=== PATIENT | male | born 1975 | race Caucasian/White ===

== ENCOUNTER 2025-02-22 01:41 | Observation (INO) | payer OTHER, SELFPAY ==
[2025-02-22] VITALS (8 sets, daily range): BP systolic 100–150; BP diastolic 59–95; PULSE 67–117; RESP 12–18; TEMP 36.2–36.6; O2SAT 92–98; BMI 47.5
--- NOTE | ~2025-02-22 | XR_ITS ---
EXAMINATION: XR retrograde pyelo w/stent RT DATE: 02/22/2025 14:51 INDICATION: Right internal ureteral stent placement TECHNIQUE: Fluoroscopic images from a right internal ureteral stent placement are submitted for review. 15 seconds of fluoroscopy time. FINDINGS: There is a right double-J internal ureteral stent projecting in expected position, with proximal [place] loop at the level of the renal pelvis and distal loop in the pelvis within the bladder lumen. IMPRESSION: 1. Right internal ureteral stent placement. Please refer to real-time procedural findings for details. Reviewed, dictated and finalized at location B. IMPRESSION: 1. Right internal ureteral stent placement. Please refer to real-time procedu ral findings for details.
--- NOTE | ~2025-02-22 | CT_ITS ---
CT abdomen pelvis w con Clinical History: rlq/flank pain, poss stone . Comparison: None Technique: Axial images lung bases to symphysis pubis 100 mL Omnipaque 350 Coronal, sagittal reformats CT images acquired with automatic exposure control for dose reduction DLP: 1618 mGy-cm Findings: Lung bases: Clear. Visualized heart and pericardium: Unremarkable. Liver: Steatosis. Enlarged Gallbladder: Unremarkable. Spleen: Unremarkable. Pancreas: Unremarkable. Adrenal glands: Unremarkable. Kidneys: Right kidney- minimal hydronephrosis. 17 mm stone major calyx. Several small stones. Small cortical cyst. Collecting system urothelial enhancement. Left kidney- No hydronephrosis. No renal stones. Distal esophagus/stomach: Small hiatal hernia. Small bowel loops: Normal caliber and wall thickness. Colon: Normal caliber and wall thickness. Normal RLQ appendix. Nodes: No enlarged nodes. Peritoneum: No ascites. No free air. Urinary bladder: Unremarkable. Prostate: Unremarkable. Bones: No acute bony abnormality. Soft tissues: Unremarkable. Aorta: No aneurysm or dissection. IVC: Unremarkable. Main portal vein/SMV/splenic vein: Patent. IMPRESSION: 1. Mild hydronephrosis right kidney with several stones, largest 17 mm within central collecting system. Probable associated pyelitis. 2. No other acute abnormality noted. Reviewed, dictated and finalized at location R.
[2025-02-22 03:44] LABS: Hematocrit 47.9 % (42.0-52.0); Hemoglobin 15.9 g/dL (14.0-18.0); Immature Granulocyte Percent A 0.4 % (0-0.5); Lymphocytes Absolute Auto 1.13 K/mm3 (0.9-3.2); Mean Corpuscular HGB Conc 33.2 g/dl (32-36); Mean Corpuscular Hemoglobin 28.6 pg (26-34); Mean Corpuscular Volume 86.2 fl (80-100); Nucleated Red Blood Cells Absolute Auto 0.000 K/mm3 (0.0-0.012); Nucleated Red Blood Cells Perc 0.0 % (0.0-0.2); Platelet Count Result 258 k/mm3 (150-375); Red Blood Count 5.56 M/mm3 (4.6-6.20); White Blood Count 10.7 K/mm3 (4.5-10.0)
--- NOTE | 2025-02-22 03:51 | ED.ABDPAIN ---
HPI - Abdominal Pain General Chief Complaint: Abdominal Pain Stated Complaint: kidney stone- n/v, painful Time Seen by Provider: 02/22/25 03:47 Source: patient Mode of arrival: ambulatory Limitations: no limitations History of Present Illness HPI narrative: This is a 49-year-old male with history of kidney stones who presents to the ED for right flank pain and right lower quadrant abdominal pain. Patient states he was woken up in the middle of the night 24 hours ago with right flank pain that felt similar to his prior kidney stone. He has had frequent urination, denies fevers, chills. He has had nausea and episode of emesis. His last kidney stone was several years ago. He tried Tylenol with minimal relief. Related Data Allergies Allergy/AdvReac Type Severity Reaction Status Date / Time No Known Allergies Allergy Mild Verified 05/12/10 10:06 Review of Systems Review of Systems: Gen.: Denies fevers or chills Eyes: Denies eye pain or visual change ENT: Denies congestion Respiratory: Denies shortness of breath or cough CV: Denies chest pain or palpitations GI: As per HPI as per HPI Musculoskeletal: Denies back pain or muscle pain Neuro: Denies numbness, tingling, weakness or focal weakness Skin: Denies rash Except as documented, all other systems reviewed and negative [facility] Social History Social History Alcohol intake: never Exam Narrative: APPEARANCE: No acute distress, nontoxic, resting in bed EYES: EOMI HEENT: Normocephalic, atraumatic, OMM RESPIRATORY: No respiratory distress Clear to auscultation bilaterally with no rhonchi wheezing or rales. CARDIOVASCULAR: Regular rate and rhythm without murmurs rubs or gallops. ABDOMINAL: Soft, nontender, nondistended, no rebound or guarding MUSCULOSKELETAl: Moves all extremities. No clubbing, cyanosis or edema. NEURO: Awake and alert. Following commands, speech normal, no focal deficits SKIN:: Warm, dry. No rashes lesions or abrasions PSYCHIATRIC: Normal affect/mood, Course Vital Signs Vital signs: Vital Signs Temperature 97.9 F 02/22/25 01:41 Pulse Rate 117 H 02/22/25 01:41 Respiratory Rate 18 02/22/25 01:41 Blood Pressure 150/95 H 02/22/25 01:41 Pulse Oximetry 97 02/22/25 01:41 Oxygen Delivery Room Air 02/22/25 01:41 Temperature 97.9 F 02/22/25 01:41 Pulse Rate 83 02/22/25 07:38 Respiratory Rate 14 02/22/25 07:38 Blood Pressure 116/71 02/22/25 07:38 Pulse Oximetry 98 02/22/25 07:38 Oxygen Delivery Room Air 02/22/25 01:41 MDM - Abdominal Pain MDM Narrative Medical decision making narrative: 49-year-old male presenting for right flank pain. On initial evaluation, patient was in no acute distress, afebrile, hemodynamically stable. Heart and lungs clear. Abdomen soft and nontender. He had a mild leukocytosis at 10.7. CMP without significant abnormalities. He UA did show 2+ blood with RBCs. CT abdomen/pelvis did reveal A1 azar 7 cm calculus in the right renal pelvis with mild right hydronephrosis. Given the obstructive ureterolithiasis, I did consult Dr. Gay, urology, who will see the patient as consult and suspects operative intervention later today, recommends admission to the hospitalist in the meantime. I discussed case with hospitalist who will admit the patient. Differential Diagnosis Differential diagnosis: Likely abdominal pain, acute appendicitis, calculus of kidney, constipation and gastroenteritis Medical Records Attestation: I reviewed the patient's medical records. Lab Data Attestation: I reviewed the patient's lab results. 02/22/25 03:32 02/22/25 04:37 Labs: Lab Results 02/22/25 02/22/25 Range/Units 03:32 04:37 WBC 10.7 H (4.5-10.0) K/mm3 RBC 5.56 (4.6-6.20) M/mm3 Hgb 15.9 (14.0-18.0) g/dL Hct 47.9 (42.0-52.0) % MCV 86.2 (80-100) fl MCH 28.6 (26-34) pg MCHC 33.2 (32-36) g/dl RDW 13.2 (11.5-14.5) % Plt Count 258 (150-375) k/mm3 MPV 10.3 (7.4-10.4) fl Immature Gran % (Auto) 0.4 (0-0.5) % Neut % (Auto) 82.0 H (45.5-73.1) % Lymph % (Auto) 10.6 L (18.3-44.2) % [place] % (Auto) 6.4 (2.6-8.5) % Eos % (Auto) 0.4 (0-4.4) % Baso % (Auto) 0.2 (0.2-1.2) % Lymph # (Auto) 1.13 (0.9-3.2) K/mm3 [place] # (Auto) 0.7 H (0.1-0.6) K/mm3 Eos # (Auto) 0.0 (0-0.3) K/mm3 Baso # (Auto) 0.0 (0.0-0.1) K/mm3 Abs Immat Gran (auto) 0.04 H (0.00-0.031) K/mm3 Absolute Neuts (auto) 8.8 H (1.3-6.7) K/mm3 Absolute Nucleated RBC 0.000 (0.0-0.012) K/mm3 Nucleated RBC % 0.0 (0.0-0.2) % Sodium 139 (137-145) mmol/L Potassium 3.7 (3.4-5.0) mmol/L Chloride 107 (98-107) mmol/L Carbon Dioxide 23 (22-30) mmol/L Anion Gap 9 (4-12) mmol/L BUN 18 (9-20) mg/dL Creatinine 1.23 (0.7-1.3) mg/dL Estim Creat Clear Calc 102 ml/min Estimated GFR > 60 (59 - ) Glucose 122 H (65-110) mg/dL Calcium 9.0 (8.4-10.2) mg/dL Total Bilirubin 1.0 (0.2-1.3) mg/dL AST 35 (17-59) U/L ALT 47 (6-50) U/L Alkaline Phosphatase 64 (38-126) U/L Total Protein 7.2 (6.3-8.2) g/dL Albumin 4.0 (3.5-5.1) g/dL Urine Color Yellow (Yellow) Urine Appearance Cloudy H (Clear) Urine pH 5.0 (5.0-9.0) Ur Specific [place] 1.022 (1.001-1.035) Urine Protein Negative (Negative) mg/dL Urine Glucose (UA) Negative (Negative) mg/dL Urine Ketones Trace H (Negative) mg/dL Ur Blood (Man) 2+ H (Negative) Urine Nitrate Negative (Negative) Urine Bilirubin Negative (Negative) Urine Urobilinogen 0.2 (<2.0) mg/dL Add Ur Microanalysis Reviewed Leukocyte Esterase Rfl Negative (Negative) SHARAN/UL Urine RBC 6-10 H (0-2) /hpf Urine WBC 0-5 (0-3) /hpf Ur Squamous Epith Cells None seen (Few) /hpf Calcium Oxalate Crystal Present (None) /hpf Urine Bacteria None seen /hpf Urine Casts 0-2 Imaging Data Attestation: I personally reviewed and interpreted this imaging study as follows: My impression: CT abdomen/pelvis: Obstructing 1.7 cm stone in the right renal pelvis with mild hydroureter Radiologist's impression: CT abdomen/pelvis: Hepatic steatosis. There is a 1.7 cm calculus in the right renal pelvis causing mild right hydronephrosis. Diminished enhancement of the right kidney compared to the left, likely due to the obstruction. There are additional nonobstructive right intrarenal stones measuring up to 4 mm in the lower pole Discharge Plan Discharge Clinical Impression: Ureterolithiasis Patient Disposition: Still a Patient Condition: Stable
[2025-02-22 03:59] LABS: Add Urine Microscopic? YES; Appearance Urine Cloudy (Clear); Glucose Urine UA Negative (Negative); Leukocyte Esterase Ur Negative LEU/UL (Negative); Need Manual Microscopic Reviewed; Nitrate Urine Negative (Negative); Non Pathogenic Casts 0-2; Specific Grav Ur 1.022 (1.001-1.035)
[2025-02-22] MEDS: SODIUM CHLORIDE 0.9% IV 1,000 ML 999 ML IV CONT (04:07)
[2025-02-22] MEDS: ONDANSETRON INJ 4 MG/2 ML VIAL IV PUSH (04:08)
[2025-02-22] MEDS: KETOROLAC 30 MG/ML VIAL (*BKC) IV PUSH (04:08)
[2025-02-22 05:02] LABS: Alanine Aminotransferase 47 U/L (6-50); Albumin Level 4.0 g/dL (3.5-5.1); Alkaline Phosphatase 64 U/L (38-126); Anion Gap 9 mmol/L (4-12); Aspartate Amino Transferase 35 U/L (17-59); Bilirubin,Total 1.0 mg/dL (0.2-1.3); Blood Urea Nitrogen 18 mg/dL (9-20); Calcium 9.0 mg/dL (8.4-10.2); Carbon Dioxide 23 mmol/L (22-30); Chloride 107 mmol/L (98-107); Estimated CRCL calculation 102 ml/min; Estimated Glomerular Filt Rate > 60; Glucose 122 mg/dL (65-110); Potassium 3.7 mmol/L (3.4-5.0); Sodium 139 mmol/L (137-145); Total Protein 7.2 g/dL (6.3-8.2)
--- NOTE | 2025-02-22 07:12 | P.HP_ITS ---
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 The patient has no significant medical history. As per the patient, in June 2024, he had nephrolithiasis and was treated in the urgent care without any surgical intervention. His symptoms started about a day ago, but due to unbearable pain, nausea, and vomiting, he came to the ED. Abdomen/pelvis CT shows Mild hydronephrosis of the right kidney with several stones, the largest 17 mm within the central collecting system?probable associated pyelitis. Patient underwent cystoscopy with right ureteral stent placement . Patient will be discharged tonight or tomorrow with the Augmentin, Flomax, and oxycodone for pain, and can follow up with Urology as an outpatient. Review of Systems Review of Systems: Gen.: Denies fevers or chills Eyes: Denies eye pain or visual change ENT: Denies congestion Respiratory: Denies shortness of breath or cough CV: Denies chest pain or palpitations GI: As per HPI as per HPI Musculoskeletal: Denies back pain or muscle pain Neuro: Denies numbness, tingling, weakness or focal weakness Skin: Denies rash Except as documented, all other systems reviewed and negative [facility] Past Medical History Medical History (Updated 02/22/25 @ 13:47 by Ken Lomax MD) HERRERA on CPAP Morbid obesity Social History Social History Smoking status: Never smoker Alcohol intake: never Substance use type: does not use Lack of Transportation: No Lack of Food: Never True Current Housing: Decline to Answer Concerned About Future Housing: Decline to Answer Difficulty Paying Gas/Electric Bills: Decline to Answer Difficulty Paying for Meds: Decline to Answer Currently Unemployed: Decline to Answer Education: Decline to Answer Difficulty w/ Childcare or Family Care: Decline to Answer Spiritual care concerns: No Meds Home Medications and Allergies Home Medications ?Medication ?Instructions ?Recorded ?Confirmed ?Type No Home Medications 02/22/25 02/22/25 H istory Allergies Allergy/AdvReac Type Severity Reaction Status Date / Time No Known Allergies Allergy Mild Verified 02/22/25 09:06 Vital Signs Vital Signs - 24 hr 02/22/25 01:41 Temperature 97.9 F Pulse Rate 117 H Respiratory Rate 18 Blood Pressure 150/95 H Pulse Oximetry 97 Oxygen Delivery Room Air Exam Narrative: APPEARANCE: No acute distress, nontoxic, resting in bed EYES: EOMI HEENT: Normocephalic, atraumatic, OMM RESPIRATORY: No respiratory distress Clear to auscultation bilaterally with no rhonchi wheezing or rales. CARDIOVASCULAR: Regular rate and rhythm without murmurs rubs or gallops. ABDOMINAL: Soft, nontender, nondistended, no rebound or guarding MUSCULOSKELETAl: Moves all extremities. No clubbing, cyanosis or edema. NEURO: Awake and alert. Following commands, speech normal, no focal deficits SKIN:: Warm, dry. No rashes lesions or abrasions PSYCHIATRIC: Normal affect/mood, Const: General: comfortable Resp: Effort & Inspection: normal respiratory effort : Other: No CVA tenderness Skin: General skin exam: normal color H&P: Results Labs Labs: Short CBC 02/22/25 Range/Units 03:32 WBC 10.7 H (4.5-10.0) K/mm3 Hgb 15.9 (14.0-18.0) g/dL Hct 47.9 (42.0-52.0) % Plt Count 258 (150-375) k/mm3 BMP 02/22/25 04:37 Sodium 139 Potassium 3.7 Chloride 107 Carbon Dioxide 23 BUN 18 Creatinine 1.23 Glucose 122 H Calcium 9.0 Liver Function 02/22/25 Range/Units 04:37 Total Bilirubin 1.0 (0.2-1.3) mg/dL AST 35 (17-59) U/L ALT 47 (6-50) U/L Alkaline Phosphatase 64 (38-126) U/L Albumin 4.0 (3.5-5.1) g/dL Urine 02/22/25 Range/Units 03:32 Urine Color Yellow (Yellow) Urine Appearance Cloudy H (Clear) Urine pH 5.0 (5.0-9.0) Ur Specific [place] 1.022 (1.001-1.035) Urine Protein Negative (Negative) mg/dL Urine Glucose (UA) Negative (Negative) mg/dL Assessment and Plan Assessment and plan (1) Ureterolithiasis: Code(s): N20.1 - Calculus of ureter Status: Acute Assessment and Plan: -underwent cystoscopy, right ureteral stent placement -reviewed a CT abdomen/pelvis -Augmentin for 7 days -Flomax for 30 days -oxycodone 5 mg for pain -follow-up with urology as outpatient Plan Code status: Full code DVT prophylaxis: Early mobilization Hospitalist [facility] Advance Care Plan I have confirmed that the patient's Advanced Care Plan is present, code status is documented, or surrogate decision maker is listed in patient medical record.: Yes Medication Reconciliation I have utilized all available resources to obtain, update and review the patients current medications (includes all prescriptions, OTC, herbals, cannabis, and nutritional supplements).: Yes
--- OUTSIDE RECORDS SUMMARY | 2025-02-22 08:01 | XMS_ITS | Data Portability ---
Author Organization [place] [facility] Address [address] [place] [address] Assessment No assessment recorded. Plan of Treatment Reminders Order Date Submit Date Provider Last Modified By Organization Details Last Modified Time Details Appointments None record ed. Lab None record ed. Referral None record ed. Procedures None record ed. Surgeries None record ed. Imaging None record ed. Medication Orders None record ed. Patient TargetsNo targets recorded. Patient Instructions Encounter Date Encounter Id Patient Instructions Last Modified By Organization Details Last Modified Time 04/26/2023 [id number] Assessment and plan discussed as noted above. Patient verbalizes understanding and agrees with plan. Instructed to call office with further question or concerns. [email or web address] Not available 04/26/2023 09:31:31 Reason for Referral None Reported. Problems Name Problem SNOMED Code Status Onset Date Resolution Date Notes Provider Name and Address Organization Details Recorded Time Obesity 469664238 Active 2022 ANDREZ BOWSER null, [place] [facility] 08:44:41 Adopted 431530004 Active 2022 ANDREZ BOWSER null, [place] [facility] 3 08:45:13 Morbid obesity 146879401 Active 2022 Cosmo Pinzon MD [address] [facility],SHASHA WEAVER [[email or web address]], [place], [phone] , [place] [facility] 3 09:02:39 Snoring 81293660 Active 2022 ANDREZ BOWSER null, [place] [facility] 3 09:20:44 Edema 958361577 Active 2022 ANDREZ BOWSER null, [place] [facility] 3 09:20:57 Liver enzymes level above reference range 226316043 Active 2022 ANDREZ BOWSER null, [place] [facility] 09:21:17 Fatigue 79819615 Active 2022 ANDREZ BOWSER null, [place] [facility] 09:21:28 Prediabetes 327748045 Active 2022 ANDREZ BOWSER null, [place] [facility] 3 09:21:36 Liver enzymes level above reference range 926060788 Active 2022 Cosmo Pinzon MD [address] [facility],SHASHA WEAVER [[email or web address]], [place], [phone] [facility] [place] [facility] 09:23:37 Problem Notes None recorded. Medical Equipment None Reported. Allergies No known drug allergies Medications Name Sig Start Date Stop Date Status Note LastModified by Organization Details LastModified Time furosemide 40 mg tablet 04/26 completed Not Available Not Available Not Available hydrochloroth iazide 12.5 mg tablet TAKE 1 TABLET BY MOUTH ONCE DAILY active Not Available Not Available No t Available Vitals Date Recorded Body height Heart rate Respiratory rate Body temperature Body mass index (BMI) Body weight Oxygen saturation Oxygen saturation in Arterial blood by Pulse oximetry Systolic And Diastolic Provider Name and Address Organization Details Last Updated DateTime 3 180.34 cm 90 /min 18 /min 97.3 [degF] 47.8 kg/m2 111637. 69 g 96 % 96 % 118/70 mm[Hg] ANDREZ BOWSER [place] [facility] 3 08:41:17 Social History Question Answer Notes LastModified by Organizat ion Details LastModified Time Tobacco Smoking Status Never Smoker ANDREZ amaya, [place] [facility] 04/26/2023 08:45:52 Do You Have An Advance Directive? No [email or web address] Information n ot available 04/26/2023 Do You Wear A Helmet When Biking? No [email or web address] Information not available 04/26/2023 What Is Your Level Of Caffeine Consumption? Occasional [email or web address] Information not available 04/26/2023 In The 14 Days Before Symptom Onset, Have You Had Close Contact With A Laboratory-confirm ed COVID-19 While That Case Was Ill? No [email or web address] Information n ot available 04/26/2023 In The 14 Days Before Symptom Onset, Have You Had Close Contact With A Person Who Is Under Investigation For COVID-19 While That Person Was Ill? No [email or web address] Information not available 04/26/2023 Have You Been To An Area Known To Be High Risk For COVID-19? No [email or web address] Information not available 04/26/2023 Are You Deaf Or Do You Have Serious Difficulty Hearing? No [email or web address] Information not available 04/26/2023 What Type Of Diet Are You Following? REGULAR Information n ot available 04/26/2023 Have You Processed Blood Or Body Fluids From An Ebola Virus Disease Patient Without Appropriate PPE? No [email or web address] Information not available 04/26/2023 Do You Reside In Or Have You Traveled To An Area Where Ebola Virus Transmission Is Active? No [email or web address] Information not available 04/26/2023 What Is The Highest Grade Or Level Of School You Have Completed Or The Highest Degree You Have Received? [id number] [email or web address] Information not available 04/26/2023 Are There Any Guns Present In Your Home? No [email or web address] Information not available 04/26/2023 Do You Use Insect Repellent Routinely? Yes [email or web address] Information not available 04/26/2023 Do You Use An Electronic Nicotine Delivery System (Vaping)? No [email or web address] Information not available 04/26/2023 ENDS Screening Date 04/26/2023 [email or web address] Information not available 04/26/2023 Do You Have A Medical Power Of Finished Hardware Erector? No [email or web address] Information not available 04/26/2023 What Was The Date Of Your Most Recent Tobacco Screening? 04/26/2023 [email or web address] Information not available 04/26/2023 Do You Have Any Pets? No [email or web address] Information not available 04/26/2023 Do You Use Your Seat Belt Or Car Seat Routinely? Yes [email or web address] Information not available 04/26/2023 Are You Passively Exposed To Smoke? No [email or web address] Information no t available 04/26/2023 Do You Use Sunscreen Routinely? Yes [email or web address] Information not available 04/26/2023 Are You Currently In School? No Information not available 04/26/2023 Sex: Male Functional Status Question Answer Note LastModified by Organizat ion Details LastModified Time Do you use any illicit or recreational drugs? No Information not available 04/26/2023 Do you or have you ever used any other forms of tobacco or nicotine? No [email or web address] Information not available 04/26/2023 What is your level of alcohol consumption? None [email or web address] Information not available 04/26/2023 Are you currently employed? Yes Information not available 04/26/2023 Are you able to care for yourself independently? 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 None Information not available 04/26/2023 Mental Status Question Answer Note LastModified by Organization D etails LastModified Time Do you feel stressed (tense, restless, nervous, or anxious, or unable to sleep at night)? [id number] Information not available 04/26/2023 Family History Nothing Reported. Medical History No medical history recorded. Immunizations Vaccine Type Date Status Note Provider Nam e and Address Organization Details Recorded Time COVID-19, mRNA, LNP-S, PF, 100 mcg/0.5mL dose or 50 mcg/0.25mL dose 08/03/2020 completed ANDREZ BOWSER null, [place] [facility] 04/26/2023 08:42:41 COVID-19, mRNA, LNP-S, PF, 100 mcg/0.5mL dose or 50 mcg/0.25mL dose 08/31/2020 completed ANDREZ BOWSER null, [place] [facility] 04/26/2023 08:42:41 Tdap 06/20/2016 completed ANDREZ BOWSER null, [place] [facility] 04/26/2023 08:42:41 Influenza, split virus, quadrivalent, PF 04/26/2022 completed ANDREZ BOWSER null, [place] [facility] 04/26/2023 08:42:41 Past Encounters Encounter ID Performer Location Encounter Start Date Encounter Closed Date Diagnosis/Indication Diagnosis SNOMED-CT Code Diagnosis ICD10 Code Diagnosis IMO Codes Diagnosis Note [id number] KIANA JOHNSON MD [facility] [address] [facility] [address] [place] [address] 04/26/2023 08:28:30 04/26/2023 09:24:28 Adult health examination 076886012 Z00.00 Counseled on screening, prevention , imms, nutrition, exercise, health maintenanc e, weight. COunseled on vision, hearing and dental care. Morbid obesity 648902535 E66.01 low fat diet, exercise, , healthy eating guidelines d/w pt, avoid fried foods, more baked foods, more fruits and vegetables as part of daily dietpt declined biatrics/d ietician referal Liver enzy mes level above reference range 113822790 R74.01 per diagnosis from [facility] visit in 12/2022,pt denied ETOH usedecline d labs today ,plans on working towards weight loss Prediabetes 687108332 R7 3.03 declined labs today ,plans on working towards weight loss and eating healthy Health Concerns Section Related Observation LastModified by Organization Detai ls LastModified Time None Recorded Concern Status LastModified by Organization Details LastModified Time None Recorded Advance Directives Directive N: Payers Insurance Date Sequence Insurance Name Policy Number Policy Khan Covered Member ID Khan Member ID Guarantor Name 07/21/2023 1 [facility] - [employer] (PPO) Eric Rivero [id number] Eric Rivero 04/26/2023 2 [facility] Eric Rivero [id number] Eric Rivero 04/25/2023 1 *SELF PAY* To jeannine Rivero Notes Date Note Type Note Provider Name and Address Organization Details Recorded Time 04/26/2023 text/html ROS as noted in the HPI pt here to est carept denies 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 in 12/2022 for leg swelling ,was Rx waterpill for few days ,BP was high ,labs were donept denies snoring ( diagnosis listed in [facility] notes) Cosmo Pinzon MD [address] [facility],SHASHA WEAVER [[email or web address]], [place], [address], [place] [facility] 04/26/2023 10:37:15
--- OUTSIDE RECORDS SUMMARY | 2025-02-22 08:01 | XMS_ITS | Clinical Summary ---
Author Organization [employer] [address] [place] [address] [place] [address] [place] [address] Care Team Providers Care Level Vial Inspector And Tester Name Role Phone Unavailable Primary Care Provider Unavailabl e Encounters Date Type Department Care Team Description 01/28/2025 External Device Data ST[facility] ABSTRACTION Provider, Abstract 01/28/2025 External Device Data [facility] ABSTRACTION Provider, Abstract 01/28/2025 External Device Data [facility] ABSTRACTION Provider, Abstract 01/22/2025 12:05 PM CDT - 01/22/2025 11:59 PM CDT Hospital Encounter 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 Gender Identity Not on file Sexual Orientation Not on file Plan of Treatment Health Maintenance Due Date Last Done Comments Pre-Diabetes and Diabetes Screening 1976 HEPATITIS B VACCINES (1 of 3 - 19+ 3-dose series) 07/03/1995 COLORECTAL SCREENING 2021 Colorectal Cancer Screening 2021 FIT-DNA Q 3 years 2021 FIT/FOBT Q 1 year 2021 Flex Sig/CT Colonography Q 5 years 2021 INFLUENZA VACCINE (#1) 2024 04/26/2022 COVID-19 Vaccine ( - season) 12/30/202406/2020, 08/03/2020 DTAP/TDAP/TD VACCINES (2 - Td or Tdap) 06/20/2026 Procedures Procedure Name Priority Date/Time Associated Diagnosis Comments XR CHEST PA AND LATERAL 2 VW Routine 01/22/2025 12:26 PM CDT Shortness of breath from Last 3 Months Results * XR CHEST PA AND LATERAL 2 VW (01/22/2025 12:26 PM CDT) Anatomical Region Laterality Modality Chest Computed Radiogr aphy 01/22/2025 12:2 6 PM CDT Impressions 01/22/2025 12:33 PM CDT IMPRESSION: No acute cardiopulmonary disease. Narrative 01/22/2025 12:33 PM CDT EXAM: XR CHEST PA AND LATERAL 2 VW STUDY DATE: 01/22/2025 12:26 PM CLINICAL INDICATION: Shortness of breath COMPARISON: None PROCEDURE: Frontal and lateral radiographs of the chest are obtained. FINDINGS: No focal consolidation. No pleural effusions or pneumothorax. The cardiac silhouette is within normal limits. No acute osseous or soft tissue abnormalities. Procedure Note Rasheeda Sanches MD - 01/22/2025 EXAM: XR CHEST PA AND LATERAL 2 VW STUDY DATE: 01/22/2025 12:26 PM CLINICAL INDICATION: Shortness of breath COMPARISON: None PROCEDURE: Frontal and lateral radiographs of the chest are obtained. FINDINGS: No focal consolidation. No pleural effusions or pneumothorax. The cardiac silhouette is within normal limits. No acute osseous or soft tissue abnormalities. IMPRESSION: No acute cardiopulmonary disease. Emerald Malin NP DIAGNOSTIC IMAGING ORDERABLES Fi nal Result from Last 3 Months Insurance [employer] [id number] POS II * Guarantor: [employer]-[facility] MED [facility] (OM) Account Type Relation to Patient Date of Phone Billing Address Corporate Other [id number] [address] [address]
--- OUTSIDE RECORDS SUMMARY | 2025-02-22 08:01 | XMS_ITS | Data Portability ---
Author Organization [facility] ([facility] Address [address] [place] [phone] Assessment No assessment recorded. Plan of Treatment Reminders Order Date Submit Date Provider Last Modified By Organization Details Last Modified Time Details Appointments None record ed. Lab None record ed. Referral None record ed. Procedures None record ed. Surgeries None record ed. Imaging None record ed. Medication Orders None record ed. Patient TargetsNo targets recorded. Patient InstructionsNo instructions recorded. Reason for Referral None Reported. Procedures Surgical History Date Name Laterality Status Provider Name and Address Organization Details Recorded Time 01/05/2024 Sleep Study completed Wojciech Moreira MD, F.C.C.P. [address] [place] [address], [place], [address], [facility] 01/11/2024 08:58:56 Imaging Results None recorded. Procedure Notes None recorded. Medical Equipment None Reported. Medications Name Sig Start Date Stop Date Status Note LastModified by Organization Details LastModified Time hydrochlorothiaz mahogany 12.5 mg tablet TAKE 1 TABLET BY MOUTH ONCE DAILY active Not Available Not Available No t Available Vitals Date Recorded Body height Body mass index (BMI) Body weight Provider Name and Address Organization Details Last Updated DateTime 01/05/2024 182.88 cm 47.9 kg/m2 127033.11 g Armand Binning-Hrit z [facility] 01/09/2024 08:52:28 Social History None recorded. Functional Status None recorded. Mental Status None recorded. Family History Nothing Reported. Medical History No medical history recorded. Past Encounters Encounter ID Performer Location Encounter Start Date Encounter Closed Date Diagnosis/Indication Diagnosis SNOMED-CT Code Diagnosis ICD10 Code Diagnosis IMO Codes Diagnosis Note [id number] [facility], [facility] [phone] [facility] [address] [place] [address] 01/05/2024 20:43:56 01/09/2024 09:21:41 Obstructive sleep apnea of adult 1860718955 103 G47.33 Health Concerns Section Related Observation LastModified by Organization Detai ls LastModified Time None Recorded Concern Status LastModified by Organization Details LastModified Time None Recorded Advance Directives Directive None Recorded Payers Insurance Date Sequence Insurance Name Policy Number Policy Khan Covered Member ID Khan Member ID Guarantor Name 10/13/2024 PAYMENT PLAN Erickimmy Rivero 02/13/2024 [facility] [id number] Eric Rivero Notes Date Note Type Note Provider Name and Address Organization Details Recorded Time 01/05/2024 text/html HST SetupReporte d by PatientEquipment InstructionsFor hst set up, patient reportshst device number 39,demonstrated to patient how to set up home sleep test device. the patient was able to return demonstration with out difficulty., andthe patient is returning the device the following morning.. Wojciech Moreira MD, F.C.C.P. [address] [facility] [address], [place], [address], [facility] 01/11/2024 08:59:00
--- OUTSIDE RECORDS SUMMARY | 2025-02-22 08:02 | XMS_ITS | Encounter Summary ---
Author Organization [facility] Address [address] [place] [address] Care Team Providers Care Reference Librarian Name Role Phone Holly Gordon MD Primary Care Provider Encounter Details Date Type Department Care Team (Late Contact Info) Description 02/05/2025 Results Follow-Up [address] [phone] Emerald Malin, DECORATING KILN OPERATOR-[employer] SALES REPRESENTATIVE [address] [place] [id number] Social History Tobacco Use Types Packs/Day Years Used Date Smoking Tobacco: Never Alcohol Use Standard Drinks/Week Comments No 0 (1 standard drink = 0.6 oz pur e alcohol) PHQ-2 Answer Date Recorded Patient Health Questionnaire-2 Score 0 01/22/2025 Sex and Gender Information Value Date Recorded Sex Assigned at Not on file 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 Gender Identity Not on file Sexual Orientation Not on file documented as of this encounter Plan of Treatment Upcoming Encounters Date Type Department Care Team (Late Contact Info) Description 07/07/2025 10:20 AM CDT Office Visit [address] [phone] Holly Gordon MD [address] [place] [phone] documented as of this encounter Visit Diagnoses Not on filedocumented in this encounter Care Teams Reference Librarian Relationship Specialty Start Date End Date Holly Gordon MD [address] [place] [phone] PCP - General Family Medicine 01/22/25 documented as of this encounter
--- OUTSIDE RECORDS SUMMARY | 2025-02-22 08:03 | XMS_ITS | Clinical Summary ---
Author Organization [facility] Address [address] [place] [address] Care Team Providers Care Repairer Screen Crusher Name Role Phone Holly Gordon MD Primary Care Provider [phone] Source Comments [facility],non-owned Affiliates and Associated Physician Practices is amultiple site organization consisting of ambulatory clinics and hospital sitesin [place], [place], [place] and [place]. This disclosure is being madepursuant to the Care Everywhere program and may not contain all information available regarding this patient. Last updated 18.[facility] Allergies No known active allergies Medications * Be aware that medications may not be up to date on this document. Alwaysverify current medications with the patient. No known medications Active Problems Problem Noted Date Diagnosed Date HERRERA (obstructive sleep apnea) 01/22/2025 Class 3 severe obesity due t o excess calories without serious comorbidity with body mass index (BMI) of 45.0 to 49.9 in adult 01/22/2025 Encounters Date Type Department Care Team Description 02/05/2025 Results Follow-Up [facility] Family Medicine [address] [place] [address] Emerald Malin APRN-CNP 02/03/2025 3:22 PM CDT - 02/03/2025 11:59 PM CDT Hospital Encounter [facility] - Ultrasound [address] [place], [place] [id number] Emerald Malin APRN-CNP Discharge Disposition: Home or Self Care 01/28/2025 Travel 01/24/2025 Results Follow-Up [facility] Family Medicine [address] [place] [address] Emerald Malin APRN-CNP 01/22/2025 10:00 AM CDT Office Visit [facility] - Family Medicine [address] [place] [phone] Emerald Malin APRN-CNP Encounter to establish care (Primary Dx); Annual physical exam; HERRERA (obstructive sleep apnea); Class 3 severe obesity due to excess calories without serious comorbidity with body mass index (BMI) of 45.0 to 49.9 in adult (HCC); Shortness of breath; Need for hepatitis C screening test; Screening for HIV (human immunodeficiency virus); Screening for colon cancer 01/22/2025 Travel from Last 3 Months Immunizations Immunization Administration Dates Next Due Covid Moderna primary monovalent 12+ yr 0.5mL ,08/03/2020 INFLUENZA VACCINE, QUADR. (F LUZONE; FLULAVAL; FLUARIX; AFLURIA QUADRIVALENT; 6MO+), 0.5 ML (IIV4) 04/26/2022 TDAP (7yrs+) 06/20/2016 Family History Medical History Relation Name Comments None Known Father None Known Mother Relation Name Status Comments Father Mother Social History Tobacco Use Types Packs/Day Years Used Date Smoking Tobacco: Never Tobacco Cessation:Counseling Given: Not Answered Alcohol Use Standard Drinks/Week Comments No 0 (1 standard drink = 0.6 oz pur e alcohol) PHQ-2 Answer Date Recorded Patient Health Questionnaire-2 Score 0 01/22/2025 Sex and Gender Information Value Date Recorded Sex Assigned at Not on file 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 Gender Identity Not on file Sexual Orientation Not on file Last Filed Vital Signs Vital Sign Reading Time Taken Comments Blood Pressure 138/86 01/22/2025 10:09 AM CDT Pulse 80 01/22/2025 10:09 AM CDT Temperature 36.9 C (98.4 F) 01/28/2018 6:35 PM CDT Respiratory Rate 16 01/28/2018 6:35 PM CDT Oxygen Saturation 95% 01/22/2025 10:09 AM CDT Inhaled Oxygen Concentration - - Weight 156.9 kg (346 lb) 01/22/2025 10:09 AM CDT Height 180.3 cm (5' 11) 01/22/2025 10:09 AM CDT Body Mass Index 48.26 01/22/2025 10:09 AM CDT Plan of Treatment Upcoming Encounters Date Type Department Care Team (Late st Contact Info) Description 07/07/2025 10:20 AM CDT Office Visit [facility] - Family Medicine [address] [place] [phone] Holly Gordon MD [address] [place] [address] Health Maintenance Due Date Last Done Comments COLOGUARD (AGES 45-75) - COL ON CA SCREENING 1976 COLON MONITORING 1976 COLONOSCOPY - COLON CA SCREENING 1976 CT COLONOGRAPHY - COLON CA SCREENING 1976 Colorectal Cancer Screening 1976 FIT - COLON CA SCREENING 1976 FLEX SIG - COLON CA SCREENING 1976 HEPATITIS B VACCINE (1 of 3 - 19+ 3-dose series) 07/03/1995 COVID-19 VACCINE ( - 2024-2 6 season) 2024 08/31/2020, 08/03/2020 INFLUENZA VACCINE (#1) 2024 04/26/2022 DTAP/TDAP/TD VACCINES (2 - T d or Tdap) 06/20/2026 06/20/2016 ZOSTER VACCINE (1 of 2) 2026 SCREENING FOR DIABETES 01/23/2028 , 01/22/2025, 01/28/2018 LIPID TESTING 01/22/2030 01/22/2025 DEPRESSION SCREENING Completed 01/22/2025 HEPATITIS C SCREENING Completed 01/22/2025 HIV SCREENING Completed 01/22/2025 HIB VACCINE Aged Out No longer eligi ble based on patient's age to complete this topic HPV VACCINE Aged Out No longer eligi ble based on patient's age to complete this topic MENINGOCOCCAL (Group B) VACCINE SHARED DECISION-MAKING Aged Out No longer eligible based on patient's age to complete this topic MENINGOCOCCAL GROUPS A/C/Y/W VACCINE Aged Out No longer eligible b ased on patient's age to complete this topic PNEUMOCOCCAL VACCINE Aged Out No long er eligible based on patient's age to complete this topic Procedures Procedure Name Priority Date/Time Associated Diagnosis Comments US ABDOMEN LIMITED Routine 02/03/2025 3: 51 PM CDT Elevated liver enzymes COLOGUARD TEST Routine 02/02/2025 2:29 PM CDT Screening for colon cancer HIV-1 HIV-2 ANTIBODY + HIV P24 AG PANEL Routine 01/22/2025 10:50 AM CDT Screening for HIV (human immunodeficiency virus) HEPATITIS C ANTIBODY Routine 01/22/2025 10:50 AM CDT Need for hepatitis C screening test HEMOGLOBIN A1C Routine 01/22/2025 10:49 AM CDT Annual physical exam TSH HI LOW REFLEX FREE T4 Routine 01/22/2025 10:49 AM CDT Annual physical exam LIPID PROFILE Routine 01/22/2025 10:49 AM CDT Annual physical exam COMPREHENSIVE METABOLIC PANEL Routine 01/22/2025 10:49 AM CDT Annual physical exam CBC W AUTO DIFFERENTIAL Routine 01/22/2025 10:49 AM CDT Annual physical exam from Last 3 Months Results * US Abdomen Limited (02/03/2025 3:51 PM CDT) Anatomical Region Laterality Modality Abdomen Ultrasound 02/03/2025 8:11 PM CDT Impressions 02/03/2025 8:14 PM CDT IMPRESSION: * Diffusely echogenic liver most consistent with hepatic steatosis *Hepatomegaly > Interpreting Provider: Jeremi Dill MD on 02/03/2025 8:14 PM Narrative 02/03/2025 8:14 PM CDT PROCEDURE: US ABDOMEN LIMITED DATE/TIME OF EXAM: 02/03/2025 3:51 PM CLINICAL INFORMATION: None relevant/not provided if blank. Indication: R74.8: Elevated liver enzymes COMPARISON: None. Technique: Grayscale and color images of the right upper quadrant were evaluated. Simple appearing renal cysts do not require imaging follow-up. FINDINGS: PANCREAS: Not well visualized due to shadowing bowel gas LIVER: Diffuse increased echogenicity of the liver. The right hepatic lobe measures 25 cm in length. No focal hepatic abnormality is seen. The main portal vein is patent with flow with normal direction of flow. Hepatic veins are difficult to visualize, however appear to demonstrate normal directional flow. BILIARY SYSTEM: The common bile duct is normal in caliber measuring 4.2 mm which is within normal limits. There is no intrahepatic biliary duct dilatation. GALLBLADDER: Well distended with normal wall thickness. No gallbladder calculi are identified. There is no pericholecystic fluid. No sonographic Hernandez's sign. RIGHT KIDNEY: Normal in size, measuring 12.3 cm in length. Renal cortical echogenicity and corticomedullary differentiation are normal. No evidence of hydronephrosis, shadowing stone, or discrete mass. FREE FLUID: None. Procedure Note Jeremi Dill MD - 02/03/2025 PROCEDURE: US ABDOMEN LIMITED DATE/TIME OF EXAM: 02/03/2025 3:51 PM CLINICAL INFORMATION: None relevant/not provided if blank. Indication: R74.8: Elevated liver enzymes COMPARISON: None. Technique: Grayscale and color images of the right upper quadrant were evaluated. Simple appearing renal cysts do not require imaging follow-up. FINDINGS: PANCREAS: Not well visualized due to shadowing bowel gas LIVER: Diffuse increased echogenicity of the liver. The right hepaticlobe measures 25 cm in length. No focal hepatic abnormality is seen. Themain portal vein is patent with flow with normal direction of flow. Hepatic veins are difficult to visualize, however appear to demonstrate normal directional flow. BILIARY SYSTEM: The common bile duct is normal in caliber measuring 4.2mm which is within normal limits. There is no intrahepatic biliary duct dilatation. GALLBLADDER: Well distended with normal wall thickness. No gallbladder calculi are identified. There is no pericholecystic fluid. Nosonographic Hernandez's sign. RIGHT KIDNEY: Normal in size, measuring 12.3 cm in length. Renalcortical echogenicity and corticomedullary differentiation are normal. Noevidence of hydronephrosis, shadowing stone, or discrete mass. FREE FLUID: None. IMPRESSION: * Diffusely echogenic liver most consistent with hepatic steatosis *Hepatomegaly > Interpreting Provider: Jeremi Dill MD on 02/03/2025 8:14 PM Emerald Loyet FOOD PHOTOGRAPHER-PRICE CHECKER US ORDERABLES Final Result * HIV-1 HIV-2 ANTIBODY + HIV P24 AG PANEL (01/22/2025 10:50 AM CDT) HIV Screen 4th Generation w Reflex Non Reactive Non Reactive [facility] INSURANCE BILL Comment: HIV-1/HIV-2 antibodies and HIV-1 p24 antigen were NOT detected. There is no laboratory evidence of HIV infection. HIV Negative Blood BLOOD SPECIMEN / Unknown 01/22/2025 10:50 AM CDT 01/22/2025 Narrative [facility] INSURANCE BILL - 01/23/2025 7:09 AM CDT Performed at: [address] [place], [place] [id number] [place], [place] [id number] Twisthand: John El PhD, Phone: [phone] Emerald Loyet FOOD PHOTOGRAPHER-PRICE CHECKER LAB - CHEMISTRY ORDERABLES F inal Result Performing Organization Address [facility]/ZIP Co de Phone Number [facility] INSURANCE BILL [address] [place] [address] * HEPATITIS C ANTIBODY (01/22/2025 10:50 AM CDT) Hepatitis C Antibody Non Reactive Non Reactive [facility] INSURANCE BILL Comment: Non Reactive - Antibodies to Hepatitis C virus (HCV) were no t detected, result does not exclude early acute HCV infection. Blood BLOOD SPECIMEN / Unknown 01/22/2025 10:50 AM CDT 01/22/2025 Narrative [facility] INSURANCE BILL - 01/23/2025 12:07 AM CDT Performed at: [address] [place] [address] [place] [id number] Twisthand: Yimi [address], Phone: [phone] [employer]ocro[employer] FOOD PHOTOGRAPHER-PRICE CHECKER LAB - CHEMISTRY ORDERABLES F inal Result Performing Organization Address City/[facility]/ZIP Co de Phone Number [facility] INSURANCE BILL [address] [place] [address] * TSH HI LOW REFLEX FREE T4 (01/22/2025 10:49 AM CDT) TSH 1.541 0.350 - 4.940 uIU/mL [facility] INSURANCE BILL Blood BLOOD SPECIMEN / Unknown 01/22/2025 10:49 AM CDT 01/22/2025 Narrative [facility] INSURANCE BILL - 01/22/2025 5:10 PM CDT Performed at: [address] [place] [id number] Twisthand: Yimi [address], Phone: [phone] Emerald Malin FOOD PHOTOGRAPHER-PRICE CHECKER LAB - CHEMISTRY ORDERABLES F inal Result [facility] INSURANCE BILL [address] [place] [address] * (ABNORMAL) HEMOGLOBIN A1C (01/22/2025 10:49 AM CDT) Hemoglobin A1c 5.8(H) <5.7 % [facility] INSURANCE BILL Comment: AVERAGE GLUCOSE MG/DL BLOOD 120 mg/dL HbA1c Interpretation: Normal: < 5.7% Pre-diabetes: 5.7-6.4% Diabetes: Equal to or greater than 6.5% Test results diagnostic of diabetes should be repeated for c onfirmation. Treatment target values recommended by ADA and other clinica l organizations should be used to evaluate metabolic control in patients. This test should not replace glucose testing for patients wi th Type 1 diabetes, pediatric patients, or women. Falsely low HbA1c results may be observed in patients with c linical conditions that shorten erythrocyte life span or dec rease mean erythrocyte age such as the presence of unstable hemoglobin variants, elevated hemoglobin F level or other ca uses of hemolytic anemia. HbA1c may not accurately reflect glycemic control when clinical conditions that affect erythr ocyte survival are present. Severe Iron deficiency anemia m ay yield falsely high results. Hemoglobin A1c assay should not be used to diagnose or monitor diabetes in patients with malignancy, recent blood transfusion, chronic kidney or soham er disease. This method may yield falsely low results when hemoglobin (HbF) exceeds 5% in the specimen. The Salgado Alinity assay for the measurement of HbA1c is a [facility] Glycohemoglobin Standardization Program (NGSP) certi fied method. Blood BLOOD SPECIMEN / Unknown 01/22/2025 10:49 AM CDT 01/22/2025 Narrative [facility] INSURANCE BILL - 01/22/2025 5:10 PM CDT Performed at: [address] [place] [id number] Twisthand: Yimi Barrientos Dr, Phone: [phone] us Emerald Malin FOOD PHOTOGRAPHER-PRICE CHECKER LAB - CHEMISTRY ORDERABLES F inal Result [facility] INSURANCE BILL [address] [place] [address] * CBC WITH DIFFERENTIAL (01/22/2025 10:49 AM CDT) WBC 6.4 4.0 - 10.7 x10E9/L [facility] INSURANCE BILL RBC 5.18 4.30 - 5.80 x10E12/L [facility] INSURANCE BILL Hemoglobin 15.2 13.3 - 17.5 g/dL [facility] INSURANCE BILL Hematocrit 45.8 38.7 - 51.1 % [facility] INSURANCE BILL MCV 88.4 80.0 - 98.0 fL [facility] INSURANCE BILL MCH 29.3 26.7 - 33.6 pg [facility] INSURANCE BILL MCHC 33.2 31.7 - 36.3 g/dL [facility] INSURANCE BILL RDW 13.3 11.3 - 14.8 % [facility] INSURANCE BILL Platelet Count 270 150 - 420 x10E9/L [facility] INSURANCE BILL Comment:MPV (CS) 11.2 fL 7.8 -11.4 Granulocytes % 60.2 41.0 - 74.0 % [facility] INSURANCE BILL Lymphocytes % 27.4 17.0 - 47.0 % [facility] INSURANCE BILL Monocytes % 7.4 3.0 - 11.0 % [facility] INSURANCE BILL Eosinophils % 4.4 0.0 - 7.0 % [facility] INSURANCE BILL Basophils % 0.3 0.0 - 1.6 % [facility] INSURANCE BILL Granulocytes Absolute 3.83 1.60 - 7.50 x10E9/L [facility] INSURANCE BILL Lymphocytes Absolute 1.74 1.00 - 4.40 x10E9/L [facility] INSURANCE BILL Monocytes Absolute 0.47 0.15 - 1.00 x10E9/L [facility] INSURANCE BILL Eosinophils Absolute 0.28 0.00 - 0.60 x10E9/L [facility] INSURANCE BILL Basophils Absolute 0.02 0.00 - 0.13 x10E9/L [facility] INSURANCE BILL Immature Granulocytes 0.3 0.0 - 1.0 % [facility] INSURANCE BILL Blood BLOOD SPECIMEN / Unknown 01/22/2025 10:49 AM CDT 01/22/2025 Narrative [facility] INSURANCE BILL - 01/22/2025 5:10 PM CDT Performed at: [address] [place] [id number] Twisthand: Yimi Bar[address] Dr, Phone: [phone] Emerald Malin FOOD PHOTOGRAPHER-PRICE CHECKER LAB - HEMATOLOGY ORDERABLES Final Result [facility] INSURANCE BILL [address] [place] [address] * (ABNORMAL) COMPREHENSIVE METABOLIC PANEL (01/22/2025 10:49 AM CDT) [facility] Glucose 105(H) 70 - 99 mg/dL [facility] INSURANCE BILL BUN 16 5.3 - 18.7 mg/dL [facility] INSURANCE BILL Creatinine 1.06 0.72 - 1.25 mg/dL [facility] INSURANCE BILL eGFR by CKD-EPI 87(L) >=90 mL/min/1.7 3 m2 [facility] INSURANCE BILL Comment: Estimated Glomerular Filtration Rate (eGFR) calculated using the CKD-EPI Creatinine Equation (2020), per the National [place] d[place] Foundation and [place] Society of Nephrology recommend ations. Sodium 144 136 - 145 mmol/L [facility] INSURANCE BILL Potassium 4.1 3.5 - 5.1 mmol/L [facility] INSURANCE BILL Chloride 110(H) 98 - 107 mmol/L [facility] INSURANCE BILL CO2 25 22 - 29 mmol/L [facility] INSURANCE BILL Calcium 9.5 8.4 - 10.4 mg/dL [facility] INSURANCE BILL Protein Total 7.2 6.4 - 8.3 gm/dL [facility] INSURANCE BILL Albumin 4.3 3.1 - 4.5 gm/dL [facility] INSURANCE BILL Bilirubin Total 0.5 0.2 - 1.2 mg/dL [facility] INSURANCE BILL Alkaline Phosphatase 70 40 - 150 U/L [facility] INSURANCE BILL AST 62(H) 10 - 48 U/L [facility] INSURANCE BILL ALT 83(H) 6 - 57 U/L [facility] INSURANCE BILL Blood BLOOD SPECIMEN / Unknown 01/22/2025 10:49 AM CDT 01/22/2025 Narrative [facility] INSURANCE BILL - 01/22/2025 5:10 PM CDT Performed at: [address] [place] [id number] Twisthand: Yimi Barrientos Dr, Phone: [phone] Emerald Malin FOOD PHOTOGRAPHER-PRICE CHECKER LAB - CHEMISTRY ORDERABLES F inal Result [facility] INSURANCE BILL [address] [place] [address] * (ABNORMAL) LIPID PROFILE (01/22/2025 10:49 AM CDT) [facility] Cholesterol 184 <200 mg/dL [facility] INSURANCE BILL Triglycerides 91 <150 mg/dL [facility] INSURANCE BILL HDL Cholesterol 38(L) >40 mg/dL [facility] INSURANCE BILL VLDL Calculated 18 <=30 mg/dL [facility] INSURANCE BILL LDL Calculated 128 <130 mg/dL [facility] INSURANCE BILL Comment:LDL is calculated us ing the Friedewald equation. Blood BLOOD SPECIMEN / Unknown 01/22/2025 10:49 AM CDT 01/22/2025 Narrative [facility] INSURANCE BILL - 01/22/2025 5:10 PM CDT Performed at: [address] [place] [id number] Twisthand: Yimi Barrientos Dr, Phone: [phone] Emerald Malin FOOD PHOTOGRAPHER-PRICE CHECKER LAB - CHEMISTRY ORDERABLES F inal Result [facility] INSURANCE BILL [address] [place] [address] from Last 3 Months Insurance [employer] Care Teams Repairer Screen Crusher Relationship Specialty Start Date End Date Holly Gordon MD [address] [place] [phone] PCP - General Family Medicine 01/22/25
--- OUTSIDE RECORDS SUMMARY | 2025-02-22 08:04 | XMS_ITS | Encounter Summary ---
Author Organization [facility] Address [address] [place] [address] Care Team Providers Care Clerical Proofreader Name Role Phone Holly Gordon MD Primary Care Provider [phone] Reason for Referral * Radiology Services (Routine) - Closed Specialty Diagnoses / Procedures Referred By Ashley boo Referred To Contact Ultrasound Diagnoses Elevated liver enzymes Procedures US Abdomen Limited Emerald Malin APRN-CNP [address] [place] [address] Phone: tel: fax: Referral ID Status Reason Start Date Expiration Date Visits Re quested Visits Authorized [id number] Closed 01/24/2025 01/24/2026 1 1 Encounter Details Date Type Department Care Team (Late st Contact Info) Description 01/24/2025 Results Follow-Up [facility] - Family Medicine [address] [place] [phone] Emerald Malin APRN-CNP [address] [place] [id number] Social History Tobacco Use Types Packs/Day Years Used Date Smoking Tobacco: Never Alcohol Use Standard Drinks/Week Comments No 0 (1 standard drink = 0.6 oz pur e alcohol) PHQ-2 Answer Date Recorded Patient Health Questionnaire-2 Score 0 01/22/2025 Sex and Gender Information Value Date Recorded Sex Assigned at Not on file 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 Gender Identity Not on file Sexual Orientation Not on file documented as of this encounter Plan of Treatment Upcoming Encounters Date Type Department Care Team (Late st Contact Info) Description 07/07/2025 10:20 AM CDT Office Visit [facility] - Family Medicine [address] [place] [address] Holly Gordon MD [address] [place] [address] documented as of this encounter Results * US Abdomen Limited (02/03/2025 3:51 [...] Jeremi Dill MD on 02/03/2025 8:14 PM Result [facility] Emerald Dea BUSINESS SOLUTIONS DIRECTOR-[facility] US ORDERABLES Final Result documented in this encounter Visit Diagnoses Diagnosis Elevated liver enzymes- Primary Nonspecific elevation of levels of transaminase or lactic acid dehydrogenase (LDH) Elevated liver enzymes Nonspecific elevation of levels of transaminase or lactic acid dehydrogenase (LDH) documented in this encounter Care Teams Clerical Proofreader Relationship Specialty Start Date End Date Holly Gordon MD [address] [place] [address] PCP - General Family Medicine 01/22/25 documented as of this encounter
--- NOTE | 2025-02-22 09:01 | ADMGEN ---
This patient, Eric Rivero, was admitted to Medical Room 342-01. Patient/family oriented to hospital policies and general routines including ID bracelet, bed and alarms, visiting hours, pain management, procedures, bathroom and other care routines, personal items, smoking policy, room service/diet, and visiting hours. Information on how to activate the Rapid Response Team has been discussed. Patient/Family are encouraged to report perceived risks to care and to ask questions if they do not understand what they are told or what they should do.
--- NOTE | 2025-02-22 13:46 | P.PNAN_ITS ---
Anes - Initial Pre Proc Eval Procedure: Operation Date: 02/22/25 13:30 Proposed Procedures p Cysto, RPG, Stone Ext, Stent Placement(Right) - Anni Gay MD Date/Time: 02/22/25 13:46 Surgeon: Serge Celis MD Pre Op Diagnosis: Obstructing Ureterolithiasis Patient Data Age: 49 Gender: M Height: 1.83 m Weight: 159 kg Last Vital Signs Temp 36.6 C 02/22/25 01:41 Pulse 83 02/22/25 07:38 Resp 14 02/22/25 07:38 BP 116/71 02/22/25 07:38 Pulse Ox 98 02/22/25 07:38 O2 Del Method Room Air 02/22/25 09:46 Allergies Allergy/AdvReac Type Severity Reaction Status Date / Time No Known Allergies Allergy Mild Verified 02/22/25 09:06 Home Medications ?Medication ?Instructions ?Recorded ?Confirmed ?Type No Home Medications 02/22/25 02/22/25 H istory Laboratory Tests 02/22/25 02/22/25 03:32 04:37 WBC 10.7 H K/mm3 (4.5-10.0) RBC 5.56 M/mm3 (4.6-6.20) Hgb 15.9 g/dL (14.0-18.0) Hct 47.9 % (42.0-52.0) MCV 86.2 fl (80-100) MCH 28.6 pg (26-34) MCHC 33.2 g/dl (32-36) RDW 13.2 % (11.5-14.5) Plt Count 258 k/mm3 (150-375) MPV 10.3 fl (7.4-10.4) Immature Gran % (Auto) 0.4 % (0-0.5) Neut % (Auto) 82.0 H % (45.5-73.1) Lymph % (Auto) 10.6 L % (18.3-44.2) Bertie % (Auto) 6.4 % (2.6-8.5) Eos % (Auto) 0.4 % (0-4.4) Baso % (Auto) 0.2 % (0.2-1.2) Lymph # (Auto) 1.13 K/mm3 (0.9-3.2) Bertie # (Auto) 0.7 H K/mm3 (0.1-0.6) Eos # (Auto) 0.0 K/mm3 (0-0.3) Baso # (Auto) 0.0 K/mm3 (0.0-0.1) Abs Immat Gran (auto) 0.04 H K/mm3 (0.00-0.031) Absolute Neuts (auto) 8.8 H K/mm3 (1.3-6.7) Absolute Nucleated RBC 0.000 K/mm3 (0.0-0.012) Nucleated RBC % 0.0 % (0.0-0.2) Sodium 139 mmol/L (137-145) Potassium 3.7 mmol/L (3.4-5.0) Chloride 107 mmol/L (98-107) Carbon Dioxide 23 mmol/L (22-30) Anion Gap 9 mmol/L (4-12) BUN 18 mg/dL (9-20) Creatinine 1.23 mg/dL (0.7-1.3) Estim Creat Clear Calc 102 ml/min Estimated GFR > 60 (59 - ) Glucose 122 H mg/dL (65-110) Calcium 9.0 mg/dL (8.4-10.2) Total Bilirubin 1.0 mg/dL (0.2-1.3) AST 35 U/L (17-59) ALT 47 U/L (6-50) Alkaline Phosphatase 64 U/L (38-126) Total Protein 7.2 g/dL (6.3-8.2) Albumin 4.0 g/dL (3.5-5.1) Urine Color Yellow (Yellow) Urine Appearance Cloudy H (Clear) Urine pH 5.0 (5.0-9.0) Ur Specific [place] 1.022 (1.001-1.035) Urine Protein Negative mg/dL (Negative) Urine Glucose (UA) Negative mg/dL (Negative) Urine Ketones Trace H mg/dL (Negative) Ur Blood (Man) 2+ H (Negative) Urine Nitrate Negative (Negative) Urine Bilirubin Negative (Negative) Urine Urobilinogen 0.2 mg/dL (<2.0) Add Ur Microanalysis Reviewed Leukocyte Esterase Rfl Negative SHARAN/UL (Negative) Urine RBC 6-10 H /hpf (0-2) Urine WBC 0-5 /hpf (0-3) Ur Squamous Epith Cells None seen /hpf (Few) Calcium Oxalate Crystal Present /hpf (None) Urine Bacteria None seen /hpf Urine Casts 0-2 Patient hx anesthesia problems: none Family hx anesthesia problems: none Results Review: All pre-operative results and documents have been reviewed as part of the pre- operative evaluation. [facility] Past Medical History Medical History (Updated 02/22/25 @ 13:47 by Ken Lomax MD) HERRERA on CPAP Morbid obesity Social History Social History Smoking status: Never smoker Alcohol intake: never Substance use type: does not use Lack of Transportation: No Lack of Food: Never True Current Housing: Decline to Answer Concerned About Future Housing: Decline to Answer Difficulty Paying Gas/Electric Bills: Decline to Answer Difficulty Paying for Meds: Decline to Answer Currently Unemployed: Decline to Answer Education: Decline to Answer Difficulty w/ Childcare or Family Care: Decline to Answer Spiritual care concerns: No Anes - Eval Final PreProcedure Day of Procedure 02/22/25 13:46 Patient weight: morbidly obese Heart: regular rate and rhythm Lungs: clear to auscultation Airway: Mallampati scale class II Neurological: alert and oriented Last oral intake: >/= 8 hours ASA classification: III Emergent: yes Anesthetic plan: proceed Anesthesia type and monitoring: general LMA and standard monitoring Results Review: All pre-operative results and documents have been reviewed as part of the pre- operative evaluation. Informed Consent: The patient's anesthetic plan and its attendant risks and benefits were discussed with the patient/family/POA. Questions were solicited and answers provided to the satisfaction of the patient/family/POA.
--- NOTE | 2025-02-22 14:17 | P.CONUR_ITS ---
Assessment and Plan Assessment and plan (1) Ureterolithiasis: Code(s): N20.1 - Calculus of ureter Status: Acute Assessment and Plan: 41-year-old male with right-sided 1.7 cm mildly obstructing stone with right flank pain and urinalysis without obvious signs of infection white blood cell count just under 11 with normal creatinine Plan Plan for cystoscopy, right ureteral stent placement, retrograde pyelogram. Discussed risks and benefits, including pain, infection, damage to surrounding structures, need for reoperation. Discussed ensuring returning to have the stent removed and the stone treated is imperative, as keeping the stent in place for a long period of time can cause damage to the kidney. Patient endorses understanding. Urology Consult Note HPI Date Seen: 02/22/25 Requesting Physician: Serge Celis MD Primary Care Provider: Anjali Flynn, Consult Narrative Narrative: Eric Rivero is a 49 year old male presenting with right flank pain found to have a 1.6 cm right renal pelvis stone. This happened last few days. States he has signs of 4. After having more pain, he presented to the emergency room. On evaluation, her blood cell count was 10.7, creatinine was 1.23. Urinalysis without any obvious signs of infection. On CT scan, found to have multiple small stones in the kidney, including a 1.6 cm renal pelvis stone with mild hydronephrosis noted. Patient denies any fevers or chills. Denies any hematuria or dysuria. [facility] Past Medical History Medical History (Updated 02/22/25 @ 13:47 by Ken Lomax MD) HERRERA on CPAP Morbid obesity Social History Social History Smoking status: Never smoker Alcohol intake: never Substance use type: does not use Lack of Transportation: No Lack of Food: Never True Current Housing: Decline to Answer Concerned About Future Housing: Decline to Answer Difficulty Paying Gas/Electric Bills: Decline to Answer Difficulty Paying for Meds: Decline to Answer Currently Unemployed: Decline to Answer Education: Decline to Answer Difficulty w/ Childcare or Family Care: Decline to Answer Spiritual care concerns: No Meds Home Medications and Allergies Home Medications ?Medication ?Instructions ?Recorded ?Confirmed ?Type No Home Medications 02/22/25 02/22/25 H istory Allergies Allergy/AdvReac Type Severity Reaction Status Date / Time No Known Allergies Allergy Mild Verified 02/22/25 09:06 Vital Signs Vital Signs - 24 hr 02/22/25 01:41 02/22/25 07:38 02/22/25 09:46 Temperature 36.6 C Pulse Rate 117 H 83 Respiratory Rate 18 14 Blood Pressure 150/95 H 116/71 Pulse Oximetry 97 98 Oxygen Delivery Room Air Room Air Exam 2 Const: General: comfortable Resp: Effort & Inspection: normal respiratory effort : Other: No CVA tenderness Skin: General skin exam: normal color Results Labs 02/22/25 03:32 02/22/25 04:37 Labs: Short CBC 02/22/25 Range/Units 03:32 WBC 10.7 H (4.5-10.0) K/mm3 Hgb 15.9 (14.0-18.0) g/dL Hct 47.9 (42.0-52.0) % Plt Count 258 (150-375) k/mm3 BMP 02/22/25 04:37 Sodium 139 Potassium 3.7 Chloride 107 Carbon Dioxide 23 BUN 18 Creatinine 1.23 Glucose 122 H Calcium 9.0 Liver Function 02/22/25 Range/Units 04:37 Total Bilirubin 1.0 (0.2-1.3) mg/dL AST 35 (17-59) U/L ALT 47 (6-50) U/L Alkaline Phosphatase 64 (38-126) U/L Albumin 4.0 (3.5-5.1) g/dL Urine 02/22/25 Range/Units 03:32 Urine Color Yellow (Yellow) Urine Appearance Cloudy H (Clear) Urine pH 5.0 (5.0-9.0) Ur Specific [place] 1.022 (1.001-1.035) Urine Protein Negative (Negative) mg/dL Urine Glucose (UA) Negative (Negative) mg/dL Imaging Attestation: I personally reviewed and interpreted this imaging study as follows: My impression: IMPRESSION: 1. Mild hydronephrosis right kidney with several stones, largest 17 mm within central collecting system. Probable associated pyelitis. 2. No other acute abnormality noted.
--- NOTE | 2025-02-22 14:23 | WPDHPUPDATE1 ---
History and Physical Update Update Date/Time: 02/22/25 14:23 History and Physical has been reviewed, including an updated exam of the patient. There are NO changes in the patient's condition. Risks, benefits, and alternatives have been discussed and questions answered. Patient agrees to proceed with procedure.
[2025-02-22] MEDS: ceFAZolin 3 GM/D5W 100 ML 100 ML IVPB (14:29)
[2025-02-22] MEDS: LIDOCAINE 2% GEL UROJET 10 ML PKG MUCOUS MEM (14:47)
[2025-02-22] MEDS: LACTATED RINGERS 1,000 ML 30 ML IV CONT (14:54)
--- NOTE | 2025-02-22 14:54 | P.OP_ITS ---
Procedure Note - Detailed Date of Procedure 02/22/25 Pre-op Diagnosis Obstructing Ureterolithiasis (right) Post-op Diagnosis Same Procedure Performed Cystoscopy, right ureteral stent placement, retrograde pyelogram, intraoperative interpretation of fluoroscopy less than 60 minutes Surgeon Anni Gay MD Anesthesia General Indications Briefly, patient is a 41-year-old male found to have a 1.7 cm renal pelvis stone is mildly obstructing and having flank pain, though no obvious signs of infection. Plan for cystoscopy, and ureteral stent placement on the right side. Risks and benefits discussed with the patient including pain, bleeding, infection, damage to surrounding structures, need for reoperation. Also discussed the fact that the stent cannot stay in place and needs to be removed in the near future or the patient can have kidney damage, and he endorsed understanding. Description of Procedure The patient was brought back to the operating theatre. After the induction of excellent anesthesia, a surgical time out was performed, and we verified the patient identification, site, laterality, and procedure. Patient received pre- operative antibiotics within 60 minutes of start time. The patient was placed in the dorsal lithotomy position. The genital area was prepped and draped in the usual, sterile fashion. We introduced a 22 Fr rigid cystoscope easily into the bladder. Mild bilobar hyperplasia noted in the prostatic urethra.. The bladder was emptied. The scope was re-inserted. Brief manzo cystoscopy did not note any other significant abnormalities. The right ureteral orifice was identified and cannulated with 5 Fr open ended catheter. We did shoot a retrograde pyelogram. This was used as a road map the kidney. The obvious filling defect in the renal pelvis is noted which is where the stone was on the CT scan. A center guidewire was placed into the catheter and advanced to the renal pelvis using fluoroscopy. Open-ended catheter removed. A 4.8 Taiwanese variable length double-J stent was then placed under direct vision with a curl observed in the kidney and in the bladder. We did not leave a string on the stent. The bladder was emptied. The patient was then awoken without event, transferred to the recovery cart and transported to the PACU in good condition. Implants Right 4.8 Taiwanese double-J variable length ureteral stent Estimated Blood Loss 1 Complications None Disposition Floor (To floor. Okay for discharge later today versus tomorrow, I recommend discharge on Flomax and a prophylactic antibiotic for 4-5 days. Will need to return to the operating room in the next week or 2 with 1 of my partners to remove the stent and take care of the stone.)
[2025-02-22] MEDS: oxyCODONE HCL (*CRX) 5 MG TAB IR PO (16:27)
--- NOTE | 2025-02-22 16:33 | P.DS_ITS ---
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 The patient has no significant medical history. As per the patient, in June 2024, he had nephrolithiasis and was treated in the urgent care without any surgical intervention. His symptoms started about a day ago, but due to unbearable pain, nausea, and vomiting, he came to the ED. Abdomen/pelvis CT shows Mild hydronephrosis of the right kidney with several stones, the largest 17 mm within the central collecting system?probable associated pyelitis. Patient underwent cystoscopy with right ureteral stent placement . Patient will be discharged tonight with the Augmentin, Flomax, and oxycodone for pain, and can follow up with Urology as an outpatient. Status at Discharge Cognitive/behavioral status at discharge: Stable Time Spent with Patient Time attestation: Total time spent providing and/or coordinating discharge services: 45 minutes Exam Narrative: APPEARANCE: No acute distress, nontoxic, resting in bed EYES: EOMI HEENT: Normocephalic, atraumatic, OMM RESPIRATORY: No respiratory distress Clear to auscultation bilaterally with no rhonchi wheezing or rales. CARDIOVASCULAR: Regular rate and rhythm without murmurs rubs or gallops. ABDOMINAL: Soft, nontender, nondistended, no rebound or guarding MUSCULOSKELETAl: Moves all extremities. No clubbing, cyanosis or edema. NEURO: Awake and alert. Following commands, speech normal, no focal deficits SKIN:: Warm, dry. No rashes lesions or abrasions PSYCHIATRIC: Normal affect/mood, Const: General: comfortable Resp: Effort & Inspection: normal respiratory effort : Other: No CVA tenderness Skin: General skin exam: normal color DS: Data Data Completed and Pending Labs on day of discharge: Labs from last 24 hours 02/22/25 02/22/25 04:37 03:32 WBC 10.7 H RBC 5.56 Hgb 15.9 Hct 47.9 MCV 86.2 MCH 28.6 MCHC 33.2 RDW 13.2 Plt Count 258 MPV 10.3 Immature Gran % (Auto) 0.4 Neut % (Auto) 82.0 H Lymph % (Auto) 10.6 L [place] % (Auto) 6.4 Eos % (Auto) 0.4 Baso % (Auto) 0.2 Lymph # (Auto) 1.13 [place] # (Auto) 0.7 H Eos # (Auto) 0.0 Baso # (Auto) 0.0 Abs Immat Gran (auto) 0.04 H Absolute Neuts (auto) 8.8 H Absolute Nucleated RBC 0.000 Nucleated RBC % 0.0 Sodium 139 Potassium 3.7 Chloride 107 Carbon Dioxide 23 Anion Gap 9 BUN 18 Creatinine 1.23 Estim Creat Clear Calc 102 Estimated GFR > 60 Glucose 122 H Calcium 9.0 Total Bilirubin 1.0 AST 35 ALT 47 Alkaline Phosphatase 64 Total Protein 7.2 Albumin 4.0 Urine Color Yellow Urine Appearance Cloudy H Urine pH 5.0 Ur Specific [place] 1.022 Urine Protein Negative Urine Glucose (UA) Negative Urine Ketones Trace H Ur Blood (Man) 2+ H Urine Nitrate Negative Urine Bilirubin Negative Urine Urobilinogen 0.2 Add Ur Microanalysis Reviewed Leukocyte Esterase Rfl Negative Urine RBC 6-10 H Urine WBC 0-5 Ur Squamous Epith Cells None seen Calcium Oxalate Crystal Present Urine Bacteria None seen Urine Casts 0-2 Discharge Plan Discharge Attending physician on discharge: Serge Celis Consulting providers: Anni Gay Discharging Clinician: Serge Celis Patient Disposition: Home Activity: as tolerated Diet: as tolerated Discharge Instructions: Please follow-up with urology as outpatient within a week upon discharge Hydrate well Please return to ED if you have any concerning symptoms Please complete 7 day course of antibiotic Patient Instructions: Antibiotic Form Patient Language: Mongolian Stand Alone Forms: General Discharge Information Follow-up/Referrals: Anni aGy MD [Physician, Urology] Gee,Anjali Garcia MD [Primary Care Provider, Unknown] Discharge Medications: New oxycodone 5 mg Tablet 5 mg PO Q4H PRN (Reason: Pain Rated 7-10) Qty: 10 0RF tamsulosin 0.4 mg Capsule 0.4 mg PO QAM Qty: 30 0RF amoxicillin-pot clavulanate 875-125 mg tablet 1 tablet PO Q12H Qty: 14 0RF Date of admission: 02/22/25 07:12 Primary Care Provider: Gee,Anjali Garcia Admitting Provider: Serge Celis Attending physician on admission: Serge Celis Condition: Stable
== END 2025-02-22 17:53 | disposition home or self-care (01) ==
LOC: ANHED 04:25 → ANH3MED 07:58
PROVIDERS: Urology; Admitting Provider General Practice; Emergency Provider Student in an Organized Health Care Education/Training Program; PCP Family Medicine; Visit Provider General Practice
PROC: (CPT 52352; principal; 2025-02-22 13:30)
DX: N13.2 Hydronephrosis with renal and ureteral calculous obstruction (principal); E66.01 Morbid (severe) obesity due to excess calories; Z68.42 Body mass index [BMI] 45.0-49.9, adult
CPT/HCPCS: 52332; 36415; 74177; 74420; 80053; 81001; 85025; 96361; 96374; 96375; 99285; A9270; C1758; C1769; C2617; G0378; J0690; J1885; J2003; J2405; J2704; J7030; J7120; Q9966; Q9967

== ENCOUNTER 2025-03-18 01:40 | Day surgery (SDC) | payer OTHER, SELFPAY ==
--- NOTE | 2025-03-06 15:15 | SUR.PREOP ---
Addendum entered by Dante Velasquez RN 03/12/25 15:34: Patient says no changes in history information since prior interview. Patient says he has made arrangements and paid for a med cab to transport him day of surgery. Informed patient to be here at 0730 on 03-18-2025 for surgery at 0930. Original Note: [facility] has started construction of its new state of the art ER which will open Spring 2026. With this, we anticipate parking may be a challenge for some our surgical patients and families. Parking spaces are limited but are available for all Surgical, obstetrics, and ER patients sharing this lot. If you arrive and find you are having a hard time finding a parking space, please note that we understand the challenges, please drive around the hospital and park near Hospital Entrance 1. When you enter this entrance, you can ask a volunteer to direct or take you back to the surgical waiting area to check in. We appreciate everyone?s understanding of these expected challenges while we build for your future. Report to the Outpatient Waiting Room, entrance under the green pavilion located off [address], at time __730AM__ on date _03/11/25_. Planned Procedure Time: _930AM__.? Time changes happen often and if your time is changed the preop area will call you the afternoon before. - You and your visitor will be asked to self-screen and do not enter if you have any COVID symptoms. Please call surgeon if you need to reschedule. - A mask is optional within the hospital at this time. Patients may have clear liquids (water, carbonated beverages, clear teas, apple juice) until 3 hours prior to surgery with a maximum of 20 ounces. - No food from midnight until time of surgery and no smoking, or chewing tobacco (or any form of nicotine). No chewing gum, candy or mints. Take only the following medications with a SIP of water on the morning of surgery: _oxycodone if needed__ DO NOT STOP ANY OF YOUR OTHER PRESCRIPTION MEDICATIONS PRIOR TO SURGERY EXCEPT THE FOLLOWING Hold all vitamins and supplements for 3 days per anesthesiologist. Medications to discontinue per physician __None____ Date to take last dose_03/07/25__ Please no make-up, nail tamazight, hairspray, perfume, deodorant, or body powder the day of surgery.? No jewelry (including any body piercings) or valuables the day of surgery, leave them at home.? Please take a shower or bath the night before, or the morning of, surgery with an antibacterial soap.? Wear comfortable, loose fitting clothing.? - Jewelry must be removed prior to entering the operating room.? Rings and piercings that are not removed may be cut off. - The hospital will not accept responsibility for valuables.? - Please leave all valuables, including medications, at home the day of surgery. If you are going home after surgery, a licensed forklift driver must drive you home.? - NO public transportation without another adult if you receive anesthesia. - We recommend that an adult stay with you for 24 hours following discharge. - We also recommend that you do not drive, make important decision, drink alcoholic beverages, or take any drugs that were not prescribed by your health care provider for at least 24 hours after your discharge time. Follow any additional instructions given to you from your surgeon. Telephone instructions given to _Eric__and asked if any additional questions and then verbalized understanding. Patient advised to call surgeon office or pre surgery nurse liaison [phone] if any additional questions.
[2025-03-06 15:17] VITALS: BMI 48.9
--- OUTSIDE RECORDS SUMMARY | 2025-03-11 00:43 | XMS_ITS | Encounter Summary ---
Author Organization [facility] Address [address] [address] Care Team Providers Care Construction Secretary Name Role Phone Holly Gordon MD Primary Care Provider [phone] Encounter Details Date Type Department Care Team (Late Contact Info) Description 02/05/2025 Results Follow-Up [address] [phone] Emerald Malin, VP [employer] [address] [place] [id number] Social History Tobacco Use Types Packs/Day Years Used Date Smoking Tobacco: Never Alcohol Use Standard Drinks/Week Comments No 0 (1 standard drink = 0.6 oz pur e alcohol) PHQ-2 Answer Date Recorded Patient Health Questionnaire-2 Score 0 01/22/2025 Sex and Gender Information Value Date Recorded Sex Assigned at Not on file 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 Gender Identity Not on file Sexual Orientation Not on file documented as of this encounter Plan of Treatment Upcoming Encounters Date Type Department Care Team (Late Contact Info) Description 07/07/2025 10:20 AM CDT Office Visit [address] [id number] Holly Gordon MD [address] [place] [phone] documented as of this encounter Visit Diagnoses Not on filedocumented in this encounter Care Teams Construction Secretary Relationship Specialty Start Date End Date Holly Gordon MD [address] [place] [phone] PCP - General Family Medicine 01/22/25 documented as of this encounter
--- OUTSIDE RECORDS SUMMARY | 2025-03-11 00:43 | XMS_ITS | Data Portability ---
Author Organization [place] [facility] Address [address] [place] [address] Assessment No assessment recorded. Plan of Treatment [...] By Organization Details Last Modified Time 04/26/2023 [id number] Assessment and plan discussed as noted above. Patient verbalizes understanding and agrees with plan. Instructed to call office with further question or concerns. [email or web address] Not available 04/26/2023 09:31:31 Reason for Referral None Reported. Problems Name Problem SNOMED Code Status Onset Date Resolution Date Notes Provider Name and Address Organization Details Recorded Time Obesity 928050679 Active 2022 ANDREZ BOWSER null, [place] [facility] 08:44:41 Adopted 601521190 Active 2022 ANDREZ BOWSER [place] [facility] 3 08:45:13 Morbid obesity 547269370 Active 2022 Cosmo Pinzon MD [address] [facility],SHASHA WEAVER [[email or web address]], [place], [phone] , [place] [facility] 3 09:02:39 Snoring 57477091 Active 2022 ANDREZ BOWSER [place] [facility] 3 09:20:44 Edema 673745147 Active 2022 ANDREZ BOWSER [place] [facility] 3 09:20:57 Liver enzymes level above reference range 096323962 Active 2022 ANDREZ BOWSER [place] [facility] 09:21:17 Fatigue 27906192 Active 2022 ANDREZ BOWSER [place] [facility] 09:21:28 Prediabetes 338555406 Active 2022 ANDREZ BOWSER [place] [facility] 3 09:21:36 Liver enzymes level above reference range 652599038 Active 2022 Cosmo Pinzon MD [address] [facility],SHASHA WEAVER [[email or web address]], [place], [address] [facility] [place] [facility] 09:23:37 Problem [...] /min 18 /min 97.3 [degF] 47.8 kg/m2 869977. 69 g 96 % 96 % 118/70 mm[Hg] ANDREZ BOWSER [place] [facility] 3 08:41:17 Social History Question Answer Notes LastModified by Organizat ion Details LastModified Time Tobacco Smoking Status Never Smoker ANDREZ amaya[place] [facility] 04/26/2023 08:45:52 Do You Have An Advance Directive? No [email or web address] Information n ot available 04/26/2023 Do You Wear A Helmet When Biking? No [email or web address] Information not available 04/26/2023 What Is Your Level Of Caffeine Consumption? Occasional [email or web address] Information not available 04/26/2023 In The 14 Days Before Symptom Onset, Have You Had Close Contact With A Laboratory-confirm ed COVID-19 While That Case Was Ill? No [email or web address] Information n ot available 04/26/2023 In The 14 Days Before Symptom Onset, Have You Had Close Contact With A Person Who Is Under Investigation For COVID-19 While That Person Was Ill? No [email or web address] Information not available 04/26/2023 Have You Been To An Area Known To Be High Risk For COVID-19? No [email or web address] Information not available 04/26/2023 Are You Deaf Or Do You Have Serious Difficulty Hearing? No [email or web address] Information not available 04/26/2023 What Type Of Diet Are You Following? REGULAR [email or web address] Information n ot available 04/26/2023 Have You Processed Blood Or Body Fluids From An Ebola Virus Disease Patient Without Appropriate PPE? No [email or web address] Information not available 04/26/2023 Do You Reside In Or Have You Traveled To An Area Where Ebola Virus Transmission Is Active? No [email or web address] Information not available 04/26/2023 What Is The Highest Grade Or Level Of School You Have Completed Or The Highest Degree You Have Received? DO88917-5 [email or web address] Information not available 04/26/2023 Are There Any Guns Present In Your Home? No [email or web address] Information not available 04/26/2023 Do You Use Insect Repellent Routinely? Yes [email or web address] Information not available 04/26/2023 Do You Use An Electronic Nicotine Delivery System (Vaping)? No [email or web address] Information not available 04/26/2023 ENDS Screening Date 04/26/2023 [email or web address] Information not available 04/26/2023 Do You Have A Medical Power Of Packing Checker? No Information not available 04/26/2023 What Was The Date Of Your Most Recent Tobacco Screening? 04/26/2023 [email or web address] Information not available 04/26/2023 Do You Have Any Pets? No [email or web address] Information not available 04/26/2023 Do You Use Your Seat Belt Or Car Seat Routinely? Yes [email or web address] Information not available 04/26/2023 Are You Passively Exposed To Smoke? No [email or web address] Information no t available 04/26/2023 Do You Use Sunscreen Routinely? Yes [email or web address] Information not available 04/26/2023 Are You Currently In School? No Information not available 04/26/2023 Sex: Male Functional Status Question Answer Note LastModified by Organizat ion Details LastModified Time Do you use any illicit or recreational drugs? No [email or web address] Information not available 04/26/2023 Do you or have you ever used any other forms of tobacco or nicotine? No [email or web address] Information not available 04/26/2023 What is your level of alcohol consumption? None [email or web address] Information not available 04/26/2023 Are you currently employed? Yes [email or web address] Information not available 04/26/2023 Are you able to care for yourself independently? 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 None Information not available 04/26/2023 Mental Status Question Answer Note LastModified by Organization D etails LastModified Time Do you feel stressed (tense, restless, nervous, or anxious, or unable to sleep at night)? [id number] Information not available 04/26/2023 Family History Nothing [...] ICD10 Code Diagnosis IMO Codes Diagnosis Note [id number] KIANA JOHNSON MD [facility] [address] [facility] [address] [place] [address] 04/26/2023 08:28:30 04/26/2023 09:24:28 Adult health examination 937906221 Z00.00 Counseled on screening, prevention , imms, nutrition, exercise, health maintenanc e, weight. COunseled on vision, hearing and dental care. Morbid obesity 885632831 E66.01 low fat diet, exercise, , healthy eating guidelines d/w pt, avoid fried foods, more baked foods, more fruits and vegetables as part of daily dietpt declined biatrics/d ietician referal Liver enzy mes level above reference range 985771099 R74.[address] [facility] visit in 12/2022,pt denied ETOH usedecline d labs today ,plans on working towards weight loss Prediabetes 809222174 R7 3.03 declined labs today ,plans on working towards weight loss and eating healthy Health Concerns Section Related Observation LastModified by Organization Detai ls LastModified Time None Recorded Concern Status LastModified by Organization Details LastModified Time None Recorded Advance Directives Directive N: Payers Insurance Date Sequence Insurance Name Policy Number Policy Khan Covered Member ID Khan Member ID Guarantor Name 07/21/2023 1 [facility] [employer] (PPO) Eric Rivero [id number] Eric Rivero 04/26/2023 2 [facility] Eric Rivero [id number] Eric Rivero 04/25/2023 1 *SELF PAY* To jeannine Rivero Notes Date Note Type Note Provider Name and Address Organization Details Recorded Time 04/26/2023 text/html ROS as noted in the HPI pt here to est carept denies 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 ,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 [employer] ,BP is usually high at DOT physical ,attributes it being nervous as doc visitBP better todaypt concerned about weight ,admits to not exercising and making unhealthy food choices ,has recently started to eat healthy and going to gym ,intentional weight loss of 20 lbs in past 3 mthspt reports was seen at [facility] in 12/2022 for leg swelling ,was Rx waterpill for few days ,BP was high ,labs were donept denies snoring ( diagnosis listed in [facility] ER visit notes) Cosmo Pinzon MD [address] [facility],SHASHA WEAVER [[email or web address]], [place], [address], [place] [facility] 04/26/2023 10:37:15
--- OUTSIDE RECORDS SUMMARY | 2025-03-11 00:43 | XMS_ITS | Data Portability ---
Author Organization [facility] (11) Address [address] [place] [address] Assessment No assessment recorded. Plan of Treatment [...] Sleep Study completed Wojciech Moreira MD, F.C.C.P. [address] [place] [address], [place], [address], [facility] 01/11/2024 08:58:56 Imaging Results None recorded. Procedure [...] Updated DateTime 01/05/2024 182.88 cm 47.9 kg/m2 385206.11 g Armand Binning-Hrit z [facility] 01/09/2024 08:52:28 Social History None recorded. Functional Status None recorded. Mental Status None recorded. Family History Nothing Reported. Medical History No medical history recorded. Past Encounters Encounter ID Performer Location Encounter Start Date Encounter Closed Date Diagnosis/Indication Diagnosis SNOMED-CT Code Diagnosis ICD10 Code Diagnosis IMO Codes Diagnosis Note [id number] [facility], [facility] [phone] [facility] [address] [place] [address] 01/05/2024 20:43:56 01/09/2024 09:21:41 Obstructive sleep apnea of adult 9411914858 103 G47.33 Health Concerns Section Related Observation LastModified by Organization Detai ls LastModified Time None Recorded Concern Status LastModified by Organization Details LastModified Time None Recorded Advance Directives Directive None Recorded Payers Insurance Date Sequence Insurance Name Policy Number Policy Khan Covered Member ID Khan Member ID Guarantor Name 10/13/2024 PAYMENT PLAN Erickimmy Rivero 02/13/2024 1 [facility] [id number] Eric Rivero Notes Date Note Type Note [...] the following morning.. Wojciech Moreira MD, F.C.C.P. [address], [place], [address], [facility] [place] [facility] 01/11/2024 08:59:00
--- OUTSIDE RECORDS SUMMARY | 2025-03-11 00:43 | XMS_ITS | Clinical Summary ---
Author Organization [facility] Address [address] [place] [address] Care Team Providers Care Room Manager Name Role Phone Holly Gordon MD Primary Care Provider [phone] Source Comments [facility],non-owned Affiliates and Associated Physician Practices is amultiple site organization consisting of ambulatory clinics and hospital sitesin [place], [place], [place] and [place]. This disclosure is being madepursuant to the Care Everywhere program and may not contain all information available regarding this patient. Last updated 18.[facility] Allergies No known active allergies [...] Encounters Date Type Department Care Team Description 03/05/2025 Telephone [facility] - Urology [address], [address] [place] [address] Wojciech Foster MD Scheduling 02/05/2025 Results Follow-Up 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 Gender Identity Not on file Sexual Orientation [...] Description 07/07/2025 10:20 AM CDT Office Visit [facility] Medical [facility] - Family Medicine [address] [place] [address] Holly Gordon MD [address] [facility] [address] [place] [address] Health Maintenance Due Date Last Done Comments [...] MD on 02/03/2025 8:14 PM Emerald Loyet BOILER REPAIR SUPERVISOR-GENERAL CAR SUPERVISOR YARD US ORDERABLES Final Result * HIV-1 HIV-2 [...] - 01/23/2025 7:09 AM CDT Performed at: [address] [place] [address] [address] [place], [place] [id number] Transition Assistant: John El PhD, Phone: [phone] Emerald Malin APRN-GENERAL CAR SUPERVISOR YARD LAB - CHEMISTRY ORDERABLES F inal Result [facility] INSURANCE BILL [address] [place] [address] * HEPATITIS C ANTIBODY (01/22/2025 10:50 AM CDT) Pathologist [facility] Hepatitis C Antibody Non Reactive Non Reactive [facility] INSURANCE BILL Comment: Non Reactive - Antibodies to Hepatitis C virus (HCV) were no t detected, result does not exclude early acute HCV infection. Blood BLOOD SPECIMEN / Unknown 01/22/2025 10:50 AM CDT 01/22/2025 Narrative [facility] INSURANCE BILL - 01/23/2025 12:07 AM CDT Performed at: [address] [place] [address] [address] [place], [place] [id number] Transition Assistant: Yimi Barrientos Dr, Phone: [phone] Emerald Hendricksont BOILER REPAIR SUPERVISOR-GENERAL CAR SUPERVISOR YARD LAB - CHEMISTRY ORDERABLES F inal Result [facility] INSURANCE BILL [address] [place] [address] * TSH HI LOW REFLEX FREE T4 (01/22/2025 10:49 AM CDT) TSH 1.541 0.350 - 4.940 uIU/mL [facility] INSURANCE BILL Blood BLOOD SPECIMEN / Unknown 01/22/2025 10:49 AM CDT 01/22/2025 Narrative [facility] INSURANCE BILL - 01/22/2025 5:10 PM CDT Performed at: [address] [place] [id number] Transition Assistant: Yimi Barrientos Dr, Phone: [phone] Emerald Malin APRN-GENERAL CAR SUPERVISOR YARD LAB - CHEMISTRY ORDERABLES F inal Result Performing Organization Address City/[facility] Co de Phone Number [facility] INSURANCE BILL [address] [place] [address] * (ABNORMAL) HEMOGLOBIN A1C (01/22/2025 10:49 AM CDT) Pathologist [facility] Hemoglobin A1c 5.8(H) <5.7 % [facility] RP [...] for the measurement of HbA1c is a [facility] Glycohemoglobin Standardization Program (NGSP) certi fied method. Blood BLOOD SPECIMEN / Unknown 01/22/2025 10:49 AM CDT 01/22/2025 Narrative [facility] INSURANCE BILL - 01/22/2025 5:10 PM CDT Performed at: [address] [place] [id number] Transition Assistant: Yimi Barrientos Dr, Phone: [phone] Emerald Malin BOILER REPAIR SUPERVISOR-GENERAL CAR SUPERVISOR YARD LAB - CHEMISTRY ORDERABLES F inal Result [facility] INSURANCE BILL [address] [place] [address] * CBC WITH DIFFERENTIAL (01/22/2025 10:49 AM [...] - 01/22/2025 5:10 PM CDT Performed at: [address] [place] [id number] Transition Assistant: Yimi Barrientos Dr, Phone: [phone] Emerald Malin BOILER REPAIR SUPERVISOR-GENERAL CAR SUPERVISOR YARD LAB - HEMATOLOGY ORDERABLES Final Result [facility] INSURANCE BILL [address] [place] [address] * (ABNORMAL) COMPREHENSIVE METABOLIC PANEL (01/22/2025 10:49 AM CDT) [facility] Glucose 105(H) 70 - 99 mg/dL [facility] INSURANCE BILL BUN 16 5.3 - 18.7 mg/dL [facility] INSURANCE BILL Creatinine 1.06 0.72 - 1.25 mg/dL [facility] INSURANCE BILL eGFR by CKD-EPI 87(L) >=90 mL/min/1.7 3 m2 [facility] INSURANCE BILL Comment: Estimated Glomerular Filtration Rate (eGFR) calculated using the CKD-EPI Creatinine Equation (2020), per the National [place] d[place] Foundation and [place] Society of Nephrology recommend ations. Sodium 144 [...] - 01/22/2025 5:10 PM CDT Performed at: [address] [place] [id number] Transition Assistant: Yimi Barrientos Dr, Phone: [phone] Emerald Malin APRN-GENERAL CAR SUPERVISOR YARD LAB - CHEMISTRY ORDERABLES F inal Result [facility] INSURANCE BILL [address] [place] [address] * (ABNORMAL) LIPID PROFILE (01/22/2025 10:49 AM CDT) [facility] Signature Cholesterol 184 <200 mg/dL [facility] INSURANCE BILL [...] - 01/22/2025 5:10 PM CDT Performed at: [facility] [address] [place], [place] [id number] Transition Assistant: Yimi Barrientos Dr, Phone: [phone] us Emerald Malin BOILER REPAIR SUPERVISOR-GENERAL CAR SUPERVISOR YARD LAB - CHEMISTRY ORDERABLES F inal Result [facility] INSURANCE BILL [address] [place] [address] from Last 3 Months Insurance [employer] Care Teams Room Manager Relationship Specialty Start Date End Date Holly Gordon MD [address] [place] [phone] PCP - General Family Medicine 01/22/25
--- OUTSIDE RECORDS SUMMARY | 2025-03-11 00:43 | XMS_ITS | Encounter Summary ---
Author Organization [facility] Address [address] [place] [address] Care Team Providers Care Training Coordinator Name Role Phone Holly Gordon MD Primary Care Provider [phone] Reason for Referral * Radiology Services (Routine) - Closed Specialty Diagnoses / Procedures Referred By Ashley boo Referred To Contact Ultrasound Diagnoses Elevated liver enzymes Procedures US Abdomen Limited Emerald Malin APRN-CNP [address] [place] [address] Phone: tel: fax: Referral ID Status Reason Start Date Expiration Date Visits Re quested Visits Authorized [id number] Closed 01/24/2025 01/24/2026 1 1 Encounter Details Date Type Department Care Team (Late st Contact Info) Description 01/24/2025 Results Follow-Up [facility] Medical [facility] - Family Medicine [address] [place] [address] Emerald Malin APRN-CNP [address] [place] [address] Social History Tobacco Use Types Packs/Day Years Used Date Smoking Tobacco: Never Alcohol Use Standard Drinks/Week Comments No 0 (1 standard drink = 0.6 oz pur e alcohol) PHQ-2 Answer Date Recorded Patient Health Questionnaire-2 Score 0 01/22/2025 Sex and Gender Information Value Date Recorded Sex Assigned at Not on file 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 Gender Identity Not on file Sexual Orientation Not on file documented as of this encounter Plan of Treatment Upcoming Encounters Date Type Department Care Team (Late st Contact Info) Description 07/07/2025 10:20 AM CDT Office Visit [facility] - Family Medicine [address] [facility] [address] [facility] [address] [place] [address] Holly Gordon MD [address] [facility] [address] [place] [address] documented as of this encounter Results * [...] Dill MD on 02/03/2025 8:14 PM Result [facility] Emerald Dea MACHINIST [facility] US ORDERABLES Final Result documented in this encounter Visit Diagnoses Diagnosis Elevated liver enzymes- Primary Nonspecific elevation of levels of transaminase or lactic acid dehydrogenase (LDH) Elevated liver enzymes Nonspecific elevation of levels of transaminase or lactic acid dehydrogenase (LDH) documented in this encounter Care Teams Training Coordinator Relationship Specialty Start Date End Date Holly Gordon MD [address] [facility] [address] [place] [address] PCP - General Family Medicine 01/22/25 documented as of this encounter
--- OUTSIDE RECORDS SUMMARY | 2025-03-11 00:43 | XMS_ITS | Clinical Summary ---
Author Organization [facility] [address] [place] [address] [place] [address] [place] [address] Care Team Providers Care Supervisor Beater Room Name Role Phone Unavailable Primary Care Provider Unavailabl e Encounters Date Type Department Care Team Description 02/26/2025 External Device Data [facility] Provider, Abstract 01/28/2025 External Device Data [facility] Provider, Abstract 01/28/2025 External Device Data [facility] Provider, Abstract 01/28/2025 External Device Data [facility] Provider, Abstract 01/22/2025 12:05 PM CDT - 01/22/2025 11:59 PM CDT Hospital Encounter [facility] Services [facility] [address] [place] [address] [place] [address] Emerald Malin NP Discharge Disposition: Home or Self Care from Last 3 Months Social History Tobacco Use Types Packs/Day Years Used Date Smoking Tobacco: Never Assessed Sex and Gender Information Value Date Recorded Sex Assigned at Not on file 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
[2025-03-18] VITALS (12 sets, daily range): BP systolic 129–161; BP diastolic 68–109; PULSE 77–99; RESP 12–20; TEMP 36.1–36.6; O2SAT 90–100; BMI 47.0
--- NOTE | ~2025-03-18 | XR_ITS ---
EXAMINATION: XR retrograde pyelo w/stent RT DATE: 03/18/2025 10:54 INDICATION: Right retrograde intraureteral stent placement TECHNIQUE: 8 fluoroscopic images of the abdomen and pelvis were obtained procedure performed by Dr. Davidson. Radiologist was not present for the imaging or procedure. The amount of fluoroscopy time used during this procedure was 0.9 minutes. The dose area product was 1.93 mGym^2. COMPARISON: 02/22/2025 FINDINGS: Activity Director image redemonstrates the previously placed right internal ureteral stent which is in expected position with loops projecting over the kidney and bladder. Subsequent images demonstrate a wire and catheter advanced into the right renal collecting system. Retrograde contrast injection demonstrates mild right hydronephrosis. Final images demonstrate placement of a new intraureteral stent with loops formed in an upper pole calyx of the right kidney and in the bladder. IMPRESSION: 1. Fluoroscopy utilized during right internal ureteral stent exchange and which is in expected position on the final images. See procedure note for further detail. Reviewed, dictated and finalized at location A. URCE ANALYST IMPRESSION: 1. Fluoroscopy utilized during right internal ureteral stent exchange and which is in expected position on the final images. See procedure note for further de tail.
--- OUTSIDE RECORDS SUMMARY | 2025-03-18 03:05 | XMS_ITS | Clinical Summary ---
Author Organization [facility] [address] [place] [address] [place] [address] [place] [address] Care Team Providers Care Auto Overhauler Name Role Phone Unavailable Primary Care Provider Unavailabl e Encounters Date Type Department Care Team Description 02/26/2025 External Device Data [facility] Provider, Abstract 01/28/2025 External Device Data [facility] Provider, Abstract 01/28/2025 External Device Data [facility] Provider, Abstract 01/28/2025 External Device Data [facility] Provider, Abstract 01/22/2025 12:05 PM CDT - 01/22/2025 11:59 PM CDT Hospital Encounter [facility] Services [facility] [address] [place] [address] Emerald Malin NP Discharge Disposition: Home or Self Care from Last 3 Months Social History Tobacco Use Types Packs/Day Years Used Date Smoking Tobacco: Never Assessed Sex and Gender Information Value Date Recorded Sex Assigned at Not on file 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
[2025-03-18] MEDS: LACTATED RINGERS 1,000 ML 30 ML IV CONT ×3 (08:05→12:32)
--- NOTE | 2025-03-18 08:19 | P.PNAN_ITS ---
Anes - Initial Pre Proc Eval Procedure: Operation Date: 03/18/25 09:30 Proposed Procedures p Cystoscopy, Right Retrograde Pyelogram, Right Ureteroscopy, Right Ureteral Stent Exchange - Omid Davidson MD Date/Time: 03/18/25 08:19 Surgeon: Omid Davidson MD Pre Op Diagnosis: right kidney stone Patient Data Age: 49 Gender: M Height: 1.8 m Weight: 152.8 kg Last Vital Signs Temp 36.6 C 03/18/25 07:32 Pulse 99 03/18/25 07:32 Resp 18 03/18/25 07:32 BP 135/91 H 03/18/25 07:32 Pulse Ox 96 03/18/25 07:32 O2 Del Method Room Air 03/18/25 07:32 Allergies Allergy/AdvReac Type Severity Reaction Status Date / Time No Known Allergies Allergy Mild Verified 03/18/25 08:13 Home Medications ?Medication ?Instructions ?Recorded ?Confirmed ?Type oxycodone 5 mg tablet 5 mg PO Q4H PRN Pain Rated 7 -10 02/22/25 03/06/25 Rx #10 tabs multivitamin (Daily Multi-Vitamin 1 tablet PO DAILY 03/18/25 History tablet) Patient hx anesthesia problems: none Family hx anesthesia problems: none Results Review: All pre-operative results and documents have been reviewed as part of the pre-operative evaluation. [facility] Past Medical History Medical History HERRERA on CPAP Morbid obesity Social History Social History Smoking status: Never smoker Alcohol intake: never Substance use type: does not use Lack of Transportation: No Lack of Food: Never True Current Housing: Decline to Answer Concerned About Future Housing: Decline to Answer Difficulty Paying Gas/Electric Bills: Decline to Answer Difficulty Paying for Meds: Decline to Answer Currently Unemployed: Decline to Answer Education: Decline to Answer Difficulty w/ Childcare or Family Care: Decline to Answer Living arrangements: alone Spiritual care concerns: No Anes - Eval Final PreProcedure Day of Procedure 03/18/25 08:19 Patient weight: morbidly obese Heart: regular rate and rhythm Lungs: clear to auscultation Airway: Mallampati scale class II Neurological: alert and oriented Last oral intake: >/= 8 hours ASA classification: III Emergent: no Anesthetic plan: proceed Anesthesia type and monitoring: general LMA and standard monitoring Results Review: All pre-operative results and documents have been reviewed as part of the pre- operative evaluation. Informed Consent: The patient's anesthetic plan and its attendant risks and benefits were discussed with the patient/family/POA. Questions were solicited and answers provided to the satisfaction of the patient/family/POA.
--- NOTE | 2025-03-18 09:05 | P.HP_ITS ---
History of Present Illness History of Present Illness Consent: Risks, benefits, and alternatives have been discussed and questions answered. Patient agrees to proceed with procedure. Chief complaint: right kidney stone Narrative: Eric Rivero is a 49 year old male who was found on recent imaging to have large right renal pelvis stone 1.7 cm in addition to several smaller stones in the lower pole. He underwent placement of a right ureteral stent with my colleague on 02/22/2025. He presents today for definitive endoscopic management of his stones. He denies any changes passes baseline and is ready for the procedure today. He states that he prefers I do not provide a postoperative update any friend or family member. Review of Systems Review of Systems: Constitutional: No fevers or chills Eyes: No changes in vision HENT: No hearing loss Cardiovascular: No chest pain or palpitations Respiratory: No shortness of breath, cough, wheezing GI: No abdominal pain, nausea, or vomiting : No dysuria or difficulty urinating Heme: No easy bruising or bleeding Skin: No rash or itching MSK: No myalgias or joint pain Psych: No hallucinations Neuro: No lateralized numbness or tingling PMFSH Past Medical History Medical History HERRERA on CPAP Morbid obesity Social History Social History Smoking status: Never smoker Alcohol intake: never Substance use type: does not use Lack of Transportation: No Lack of Food: Never True Current Housing: Decline to Answer Concerned About Future Housing: Decline to Answer Difficulty Paying Gas/Electric Bills: Decline to Answer Difficulty Paying for Meds: Decline to Answer Currently Unemployed: Decline to Answer Education: Decline to Answer Difficulty w/ Childcare or Family Care: Decline to Answer Living arrangements: alone Spiritual care concerns: No Meds Home Medications and Allergies Home Medications ?Medication ?Instructions ?Recorded ?Confirmed ?Type oxycodone 5 mg tablet 5 mg PO Q4H PRN Pain Rated 7 -10 02/22/25 03/06/25 Rx #10 tabs multivitamin (Daily Multi-Vitamin 1 tablet PO DAILY 03/18/25 History tablet) Allergies Allergy/AdvReac Type Severity Reaction Status Date / Time No Known Allergies Allergy Mild Verified 03/18/25 08:13 Vital Signs Vital Signs - 24 hr 03/18/25 07:32 Temperature 36.6 C Pulse Rate 99 Respiratory Rate 18 Blood Pressure 135/91 H Pulse Oximetry 96 Oxygen Delivery Room Air Exam Narrative: General: Alert, no acute distress Head: Normocephalic, atraumatic Eyes: Extraocular movements intact Neck: No JVD, trachea midline Respiratory: Symmetric chest rise, nonlabored breathing on room air CV: Normal rate, adequate peripheral perfusion Abdomen: Soft, nontender, nondistended Skin: Warm/dry Extremities: No peripheral edema, no cyanosis Neuro: No focal deficits Psych: Answers questions appropriately, appropriate mood Assessment and Plan Assessment and plan (1) Nephrolithiasis: Code(s): N20.0 - Calculus of kidney Status: Acute Assessment and Plan: 41-year-old male with large volume stone burden in the right kidney status post placement of right ureteral stent 02/22/2025 - To OR for cystoscopy, right retrograde pyelogram, ureteroscopy with CVAC, and right ureteral stent exchange - Risks, benefits, alternatives reviewed with the patient. He is amenable to proceed. 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
--- NOTE | 2025-03-18 09:05 | WPDHPUPDATE1 ---
History and Physical Update Update Date/Time: 03/18/25 09:05 History and Physical has been reviewed, including an updated exam of the patient. There are NO changes in the patient's condition. Risks, benefits, and alternatives have been discussed and questions answered. Patient agrees to proceed with procedure.
[2025-03-18] MEDS: ceFAZolin 3 GM/D5W 100 ML 100 ML IVPB (09:18)
--- NOTE | 2025-03-18 10:41 | S_PTH ---
PATIENT: Eric Rivero LOC: [facility] U#:[id number] AGE/SX: 49/M ROOM: RE03/18/[address]: Omid Davidson MD : 1975 BED: DIS: 03/18/2025 SPEC #: [id number] RECD: 03/18/25 11:00 STATUS: ELIEZER REPaige #: [id number] SUZANNE: 03/18/25 10:[address]: Omid Davidson DEPT: [facility] Surgical RECD BY: Nayeli Ellison ENTERED: 03/18/25 11:00 SP TYPE: Surgical OTHR DR: Anjali Flynn, Tissues: A - Stone Procedures: Gross Exam Level 1 Crystalline Analysis
--- NOTE | 2025-03-18 11:06 | W.PM.PROC2 ---
Procedure Note - Detailed Date of Procedure 03/18/25 Pre-op Diagnosis Right kidney stones Post-op Diagnosis Same Procedure Performed 1. Cystoscopy 2. Right retrograde pyelogram with intraoperative interpretation 3. Right ureteroscopy with laser lithotripsy with CVAC 4. Right ureteral stent exchange Surgeon Omid Davidson MD Anesthesia General Findings 1. Cystourethroscopy revealed mild lateral lobe hyperplasia. Orthotopic ureteral orifices bilaterally within appropriate position right ureteral stent which had some encrustation along the distal curl. No suspicious lesions, tumors, or active bleeding in the lower urinary tract. 2. Modifier 22 -- please note that this case required significantly greater effort, increased intensity, time, technical difficulty of procedure, and physical and mental effort required, than is usually needed for this procedure given the large stone burden measuring over 2.5 cm. 3. Right renal endoscopy performed through the ureteral access sheath showed a large approximately 1.7 cm renal pelvis stone. There were also several smaller stones in the mid and lower poles of the kidney. Overall the total stone burden measured over 2.5 cm. 4. Successful laser lithotripsy using CVAC device to aspirate stone fragments. There were no sizable stone fragments appreciated afterwards. 5. Pullback ureteroscopy revealed no notable stones nor injury 6. Right retrograde pyelogram using a 50 50 mixture of contrast and saline showed no hydroureteronephrosis, filling defects, or contrast extravasation 7. Successful right ureteral stent exchange without strings attached Description of Procedure After informed consent was obtained, the patient was brought back to the operating theatre and placed in the supine position on the operating table. Pre-operative antibiotics were confirmed to have been administered. Anesthesia was induced. The patient was moved into the dorsal lithotomy position and prepped and draped in the standard sterile fashion for an endoscopic case. All pressure points were padded. Bilateral sequential compression devices were on and noted to be functioning. A formal timeout was performed with Dr. Davidson in attendance to confirm the correct patient, site/laterality, and procedure and all were in agreement to proceed. To begin with, I atraumatically advanced a lubricated 22-Panamanian rigid cystoscope transurethrally into the patient's bladder. Pancystoscopy was performed with findings as noted above. Attention was then turned to the right ureteral orifice, from which was seen emanating the patient's existing right ureteral stent in appropriate position. The distal curl of the stent was encrusted. Alongside the stent I advanced a Sensor wire up to the level of the right kidney under fluoroscopy. I then removed the cystoscope and secured the Sensor wire to the drapes with a hemostat. I then reinserted the cystoscope transurethrally in the patient's bladder and used flexible alligator graspers to grasp the existing stent and bring it out through the urethral meatus. I attempted to cannulate the stent with a straight Glidewire but it was meeting resistance, likely due to incrustation. I thus removed the existing stent in its entirety and then after reinserting the cystoscope into the bladder, I cannulated the right ureteral orifice with the 2nd, safety Glidewire was also advanced up to the level of the right kidney under fluoroscopy. I then removed the cystoscope and advanced a 12/14 Panamanian 46 cm ureteral access sheath over top of the Glidewire entered and under direct fluoroscopic guidance I advanced this to the level of the right proximal ureter. The inner sheath was removed and then I advanced the CVAC scope through the outer sheath to perform right proximal ureteroscopy and renal endoscopy. I explored the upper, mid, and lower poles of the kidney as well as renal pelvis. There was a large approximately 1.7 cm renal pelvis stone. There were also several smaller stones in the mid and lower poles of the kidney. Overall, the total stone burden measured over 2.5 cm. I then advanced a 200 micron Radames laser through the CVAC scope and performed laser lithotripsy to dust the stones into sub 1 mm fragments. Periodically I would aspirate the stone fragments using the suction device on CVAC scope. This process was continued for approximately 45 minutes given the extensive stone burden. Afterwards, there were no sizable stone fragments that I appreciated remaining in the left kidney. Next, through the CVAC scope position in the left renal pelvis I performed a right-sided retrograde pyelogram in order to delineate the right-sided collecting system in anticipation of stent exchange. I then performed pullback ureteroscopy while simultaneously removed the access sheath and did not appreciate any sizable stones nor ureteral injury. Next, with the access sheath and CVAC scope removed, I backloaded the cystoscope onto the Sensor wire which was advanced transurethrally in the patient's bladder with attention drawn the right ureteral orifice. Over top of the wire I attempted to pass a 4.8 Panamanian variable length double-J ureteral stent however for unclear reasons this was meeting resistance. I broke apart the cystoscope and evaluated the channel and did not note any abnormalities. I then attempted to advance the stent once again but was meeting resistance for unclear reasons. At this point I asked for a 6 Panamanian variable length double-J ureteral stent and was able to pass this without difficulty over the wire and used the pusher to deploy the stent in place. I confirmed a good proximal curl in the right kidney under fluoroscopy and a good distal curl in the bladder under both fluoroscopic and direct cystoscopic vision. The patient's bladder was then emptied and the cystoscope was removed, essentially concluding the case. At the conclusion of the case all sponge, instrument, and sharp counts were correct x 2. The patient was then awoken from anesthesia and taken to the recovery room in stable condition. The patient tolerated the procedure well and there were no immediate complications noted. Disposition: The patient will be monitored in the PACU and be discharged home with clearing PACU protocol. He will follow-up in the Urology Clinic in about 1-2 weeks for office cystoscopy and right ureteral stent removal. No friends or family member was contacted postoperatively to given a day given the patient's preoperative wishes.
[2025-03-18] MEDS: fentaNYL CITRATE INJ (*CRX) 100 MCG/2 ML VIAL 25 MCG IV PUSH (11:42)
[2025-03-18] MEDS: ONDANSETRON INJ 4 MG/2 ML VIAL IV PUSH (11:57)
[2025-03-18] MEDS: SCOPOLAMINE 1 MG PATCH 1 PATCH TRANSDERM (12:26)
--- NOTE | 2025-03-18 13:42 | SUR.PHASEII ---
PATIENT MEETS D/C CRITERIA. IV AND VS MONITORING D/C. PATIENT WAITING FOR RIDE AT THIS TIME.
== END 2025-03-18 13:58 | disposition home or self-care (01) ==
PROVIDERS: PCP Family Medicine; Visit Provider Urology
PROC: (CPT 52352; principal; 2025-03-18 09:30)
DX: N20.0 Calculus of kidney (principal); N40.0 Benign prostatic hyperplasia without lower urinary tract symptoms; G47.33 Obstructive sleep apnea (adult) (pediatric); E66.01 Morbid (severe) obesity due to excess calories; Z68.42 Body mass index [BMI] 45.0-49.9, adult; Z99.89 Dependence on other enabling machines and devices; Z98.890 Other specified postprocedural states; Z87.891 Personal history of nicotine dependence
CPT/HCPCS: 52356; C9761; 74420; 82365; 88300; A9270; C1747; C1758; C1769; C2617; J0690; J1100; J1200; J2250; J2405; J2704; J3010; J7120; Q9966